=== PATIENT | male | born 1985 | race Caucasian/White ===

== ENCOUNTER 2019-04-04 14:37 | Day surgery (SDC) | payer OTHER ==
--- NOTE | 2019-04-03 18:04 | HP ---
HISTORY AND PHYSICAL REASON FOR ADMISSION: Surgery scheduled for 04/04/2019. Antoine Alvarado is a 33-year-old patient seen with progressive right knee pain. We discussed treatment options. He elected to proceed with right knee arthroscopy. Consent regarding procedure was obtained. PAST MEDICAL HISTORY: Hypertension, depression. PAST SURGICAL HISTORY: Right knee arthroscopy, left shoulder arthroscopy. MEDICATIONS: [place], Prilosec, Propranolol. ALLERGIES: VANCOMYCIN. SOCIAL HISTORY: Denies current tobacco use. PHYSICAL EXAMINATION: Evaluation of the right knee range of motion 0-130. Tenderness along the medial joint line. Tenderness along lateral joint line. Positive medial True's. Ligaments stable. Hip rotation without pain. Distal neurovascular exam intact. RADIOGRAPHS: Radiographs of the right knee revealed mild osteoarthritic changes. Right knee MRI revealed a medial meniscal tear. IMPRESSION: 1. Internal derangement right knee with medial meniscal tear. 2. Right knee osteoarthritis. 3. Hypertension. 4. Chronic opioid use. PLAN: Right knee arthroscopy with partial meniscectomy and debridement. Surgery scheduled for 04/04/2019. MMODL / IJN: [id number] /
[~2019-04-04 14:37] MED LIST: LACTATED RINGERS 1,000 ML IV SCH; ceFAZolin 3 GM in SODIUM CHLORIDE 0.9% 100 ML IVPB ONE
[2019-04-04] MEDS ORDERED: LIDOCAINE 1% 20 ML VIAL (10MG/ML) FOR IV START INTRADERMA ONE (15:12)
[2019-04-04] MEDS: ONDANSETRON 4 MG/2 ML VIAL IVP ONE ×2 (15:13→18:17)
[2019-04-04] MEDS ORDERED: DEXAMETHASONE SOD PHOSPHATE 10 MG/ML 1 ML VIAL IV ONE (15:13)
[2019-04-04] MEDS ORDERED: fentaNYL (PF) 50 MCG/ML 2 ML AMP ONE (17:21)
[2019-04-04] MEDS ORDERED: LIDOCAINE 1% INJ 10MG/ML (20 ML MDV) ONE (17:21)
[2019-04-04] MEDS ORDERED: SUCCINYLCHOLINE CHLORIDE 100 MG/5 ML SYR IV ONE (17:21)
[2019-04-04] MEDS ORDERED: MIDAZOLAM 2 MG/2 ML VIAL ONE (17:21)
[2019-04-04] MEDS ORDERED: KETOROLAC 30 MG/ML 1 ML VIAL ONE (17:21)
[2019-04-04] MEDS ORDERED: PROPOFOL 10 MG/ML 20 ML VIAL IV ONE (17:21)
[2019-04-04] MEDS ORDERED: BUPIVACAINE (PF) 0.5% 30 ML VIAL SQ ONE ×2 (17:41→17:47)
[2019-04-04] MEDS ORDERED: LACTATED RINGERS 1,000 ML IV ONE (17:48)
[2019-04-04 18:03] VITALS: TEMP 97
--- NOTE | 2019-04-04 18:04 | P.OP ---
Date of Procedure: 04/04/19 Preoperative Diagnosis: Internal derangement right knee Postoperative Diagnosis: 1. Tear medial meniscus right knee 2. Grade 2 chondromalacia medial femoral condyle right knee 3. Reactive synovitis medial and suprapatellar compartments right knee Procedure(s) Performed: 1. Arthroscopic partial medial meniscectomy right knee 2. Arthroscopic chondroplasty medial femoral condyle right knee 3. Arthroscopic partial synovectomy medial and suprapatellar compartments right knee Anesthesia: JAYA, local Surgeon: Vance Martin Estimated Blood Loss (ml): 5 Pathology: none sent Condition: stable Disposition: PACU Indications for Procedure: 33-year-old patient seen with progressive right knee pain. After having treatment options discussed, he elected to proceed with arthroscopy. Operative Findings: See description of procedure Description of Procedure: Patient was taken to the operative suite. Patient underwent a general anesthetic by the department of anesthesia. Patient was given preoperative antibiotics. The right lower extremity was placed in a well-padded arthroscopic leg lowery. The right leg was prepped and draped in the normal sterile orthopedic fashion. A lateral parapatellar and suprapatellar incision was made. Trochars were inserted. Arthroscopy was initiated. Suprapatellar pouch revealed diffuse thick reactive synovitis as well as multiple small loose bodies consistent with osteochondral fragments. The patellofemoral joint appeared to articulate congruently. There was grade 1 chondromalacia of the patella. The scope was guided into the medial gutter. No loose bodies or plica were identified. The scope was then guided into the medial compartment. A medial parapatellar incision was made. Trocar inserted followed by probe. There was a radial tear posterior horn medial meniscus. There were grade 2 chondromalacia changes the medial femoral condyle with some osteochondral flap tears present. There was thick reactive synovitis anteriorly. I performed a partial medial meniscectomy getting down to stable meniscal tissue. I performed a chondroplasty of the medial femoral condyle down to stable tissue. I performed a partial synovectomy decompressing the reactive synovitis anteriorly. The residual meniscus was probed and found to be stable. The residual osteochondral surface was stable. There was good decompression of the synovitis. Scope and probe were then guided into the intercondylar notch. Cruciates were identified, probed and found to be stable. The scope and probe were then guided into lateral compartment. Lateral meniscus was probed and found to be stable. There was no significant synovitis. There was no chondromalacia present. The scope was in guided back into the suprapatellar compartment. I introduced a motorized shaver into the suprapatellar compartment. I debrided some piecemeal fragments of meniscus I encountered. I debrided out those small loose bodies. I performed a partial synovectomy decompressing the reactive synovitis. The shaver was removed. I took one more look on the entire knee, no residual debris. Instruments were now removed from the joint. The joint was infiltrated with .25% Marcaine. Steri-Strips were applied to the portal sites. Sterile dressings were applied. The patient was placed into a DORA hose. No tourniquet was utilized. The patient was awakened, transferred to a bed and taken to recovery stable satisfactory condition.
[2019-04-04] MEDS: HYDROmorphone 0.5 MG/0.5 ML SYRINGE IVP PRN ×2 (18:14→18:19)
[2019-04-04] MEDS ORDERED: HYDROcodone/APAP 10-325MG 1 EACH TAB PO ONE (18:49)
[2019-04-04 18:55] VITALS: RESP 18
[2019-04-04 19:16] VITALS: BP 140/70; PULSE 60
== END 2019-04-04 19:20 | disposition home or self-care (01) ==
LOC: OR 14:37
PROVIDERS: ATTEND Orthopaedic Surgery
DX: S83.241A Other tear of medial meniscus, current injury, right knee, initial encounter (principal); X58.XXXA Exposure to other specified factors, initial encounter; M22.41 Chondromalacia patellae, right knee; M65.861 Other synovitis and tenosynovitis, right lower leg; M17.11 Unilateral primary osteoarthritis, right knee; I10 Essential (primary) hypertension; F32.9 Major depressive disorder, single episode, unspecified; K21.9 Gastro-esophageal reflux disease without esophagitis; G47.33 Obstructive sleep apnea (adult) (pediatric); G43.909 Migraine, unspecified, not intractable, without status migrainosus; Z79.891 Long term (current) use of opiate analgesic; Z79.899 Other long term (current) drug therapy; Z88.1 Allergy status to other antibiotic agents; Z98.890 Other specified postprocedural states
CPT/HCPCS: 29881; 29876; J2250; J1100; J0690; J2405; J2001; J3010; J1885; J0330; J2704; J1170

== ENCOUNTER 2020-11-11 17:20 | Observation (INO) | payer OTHER ==
[2020-11-11] MEDS ORDERED: HYDROmorphone 0.5 MG/0.5 ML SYRINGE IVP STA (18:05)
[2020-11-11] MEDS ORDERED: SODIUM CHLORIDE 0.9% 1,000 ML IV STA (18:05)
[2020-11-11] MEDS ORDERED: ONDANSETRON 4 MG/2 ML VIAL IVP STA (18:05)
--- NOTE | 2020-11-11 18:10 | ED ---
General Adult HPI - General Chief complaint: Abdominal Pain Stated complaint: abn labs Time Seen by Provider: 11/11/20 17:25 Source: patient, RN notes reviewed, old records reviewed Mode of arrival: ambulatory Limitations: no limitations - History of Present Illness Initial comments: This is a 34-year-old male who states she's been having right upper quadrant abdominal pain for a month. Patient states the pain radiates to his back and up to his right shoulder. Patient states the pain is pretty constant and is almost always there. Patient denies any fever chills per patient denies any chest pain palpitations or difficulty breathing. Patient states his had COVID but he was checked for antibodies and they told him he was negative. Patient denies any diarrhea. Patient denies any vomiting. Patient states the pain is gotten progressively worse and he can no longer stand the pain. Patient denies any alcohol use. Patient states that he went to urgent care today and they told his lipase was elevated. - Related Data Home Medications Medication Instructions Recorded Confirmed HYDROcodone/APAP 10-325MG [[place] 1 tab PO Q6H PRN 04/01/19 04/04/19 10-325] Omeprazole Magnesium [PriLOSEC OTC] 1 tab PO HS PRN 04/01/19 04/04/19 Propranolol HCl [Inderal] 60 mg PO DAILY PRN 04/01/19 04/04/19 Triamcinolone 0.1% Cream [Kenalog 1 applic TOPICAL DAILY PRN 04/01/19 04/04/19 0.1% Cream] Allergies Allergy/AdvReac Type Severity Reaction Status Date / Time vancomycin Allergy Rash/Hives Verified 11/11/20 17:28 Review of Systems ROS Statement: Those systems with pertinent positive or pertinent negative responses have been documented in the HPI. ROS Other: All systems not noted in ROS Statement are negative. Past Medical History Past Medical History: GERD/Reflux, Sleep Apnea/CPAP/BIPAP Additional Past Medical History / Comment(s): CHRONIC PAIN RIGHT & LEFT KNEE, LUMBAR AND CERIVAL PAIN (FROM SERVICE INJURY). MIGRAINES. DOES NOT USE CPAP. PLANTAR FASCIATIS IN BOTH FEET. History of Any Multi-Drug Resistant Organisms: MRSA Date of last positivie culture/infection: 08/24/2010; 02/24/2010; 07/27/2008 (ESTIMATED DATES FROM PATIENT). MDRO Source:: LEGS BUTTOCKS; LEG BUTTOCKS; GROIN Past Surgical History: Orthopedic Surgery Additional Past Surgical History / Comment(s): RIGHT KNEE ARTHOSCOPY X 2, LEFT SHOULDER ARTHOSCOPY. Past Anesthesia/Blood Transfusion Reactions: No Reported Reaction Past Psychological History: No Psychological Hx Reported Smoking Status: Never smoker Past Alcohol Use History: None Reported Past Drug Use History: None Reported - Past Family History Mother Family Medical History: No Reported History General Exam - General Exam Comments Initial Comments: GENERAL: Patient is well-developed and well-nourished. Patient is nontoxic and well- hydrated and is in mild distress. ENT: Neck is soft and supple. No significant lymphadenopathy is noted. Oropharynx is clear. Moist mucous membranes. Neck has full range of motion without eliciting any pain. EYES: The sclera were anicteric and conjunctiva were pink and moist. Extraocular movements were intact and pupils were equal round and reactive to light. Eyelids were unremarkable. PULMONARY: Unlabored respirations. Good breath sounds bilaterally. No audible rales rhonchi or wheezing was noted. CARDIOVASCULAR: There is a regular rate and rhythm without any murmurs gallops or rubs. ABDOMEN: Patient has right upper quadrant abdominal pain. SKIN: Skin is clear with no lesions or rashes and otherwise unremarkable. NEUROLOGIC: Patient is alert and oriented x3. Cranial nerves II through XII are grossly intact. Motor and sensory are also intact. Normal speech, volume and content. Symmetrical smile. MUSCULOSKELETAL: Normal extremities with adequate strength and full range of motion. No lower extremity swelling or edema. No calf tenderness. LYMPHATICS: No significant lymphadenopathy is noted PSYCHIATRIC: Normal psychiatric evaluation. Limitations: no limitations Course Vital Signs 11/11/20 17:25 Temperature 97.9 F Pulse Rate 100 Respiratory 18 Rate Blood Pressure 134/83 O2 Sat by Pulse 98 Oximetry Medical Decision Making - Medical Decision Making Ultrasound gallbladder shows no acute abnormality. Patient was offered discharge but he stated that he was in too much pain to go home. I spoke with Dr. Chavez she agreed to admit the patient admitted the patient wrote admitting orders. - Lab Data Result diagrams: 11/11/20 18:17 11/11/20 18:17 Lab Results 11/11/20 11/11/20 11/11/20 Range/Units 18:17 18:17 18:17 WBC 7.2 (3.8-10.6) k/uL RBC 4.76 (4.30-5.90) m/uL Hgb 15.0 (13.0-17.5) gm/dL Hct 41.9 (39.0-53.0) % MCV 88.0 (80.0-100.0) fL MCH 31.4 (25.0-35.0) pg MCHC 35.7 (31.0-37.0) g/dL RDW 12.2 (11.5-15.5) % Plt Count 223 (150-450) k/uL MPV 7.1 Neutrophils % 62 % Lymphocytes % 28 % Monocytes % 6 % Eosinophils % 2 % Basophils % 1 % Neutrophils # 4.5 (1.3-7.7) k/uL Lymphocytes # 2.0 (1.0-4.8) k/uL Monocytes # 0.4 (0-1.0) k/uL Eosinophils # 0.1 (0-0.7) k/uL Basophils # 0.0 (0-0.2) k/uL Sodium 140 (137-145) mmol/L Potassium 4.1 (3.5-5.1) mmol/L Chloride 105 (98-107) mmol/L Carbon Dioxide 25 (22-30) mmol/L Anion Gap 10 mmol/L BUN 13 (9-20) mg/dL Creatinine 0.82 (0.66-1.25) mg/dL Est GFR (CKD-EPI)AfAm >90 (>60 ml/min/1.73 sqM) Est GFR (CKD-EPI)NonAf >90 (>60 ml/min/1.73 sqM) Glucose 102 H (74-99) mg/dL Calcium 9.9 (8.4-10.2) mg/dL Total Bilirubin 0.7 (0.2-1.3) mg/dL AST 26 (17-59) U/L ALT 17 (4-49) U/L Alkaline Phosphatase 67 (38-126) U/L Total Protein 7.5 (6.3-8.2) g/dL Albumin 4.8 (3.5-5.0) g/dL Amylase 51 (30-110) U/L Lipase 53 (23-300) U/L Urine Color Light Yellow Urine Appearance Clear (Clear) Urine pH 6.5 (5.0-8.0) Ur Specific [place] 1.004 (1.001-1.035) Urine Protein Negative (Negative) Urine Glucose (UA) Negative (Negative) Urine Ketones Negative (Negative) Urine Blood Negative (Negative) Urine Nitrite Negative (Negative) Urine Bilirubin Negative (Negative) Urine Urobilinogen <2.0 (<2.0) mg/dL Ur Leukocyte Esterase Negative (Negative) Disposition Clinical Impression: Right upper quadrant abdominal pain Disposition: ADMITTED IP TO THIS HOSP Referrals: [facility]inic [Primary Care Provider] - 1-2 days Time of Disposition: 20:48
[2020-11-11 18:29] LABS: Basophils % (A) 1 %; Eosinophils # (A) 0.1 k/uL (0-0.7); Eosinophils % (A) 2 %; HCT 41.9 % (39.0-53.0); Lymphocytes % (A) 28 %; MCH 31.4 pg (25.0-35.0); MCHC 35.7 g/dL (31.0-37.0); Mean Platelet Volume 7.1; Monocytes # (A) 0.4 k/uL (0-1.0); Monocytes % (A) 6 %; Neutrophils # (A) 4.5 k/uL (1.3-7.7); Neutrophils % (A) 62 %; Platelet Count 223 k/uL (150-450); RBC 4.76 m/uL (4.30-5.90); RDW 12.2 % (11.5-15.5); WBC 7.2 k/uL (3.8-10.6)
[2020-11-11 18:36] LABS: ALT 17 U/L (4-49); AST 26 U/L (17-59); African American GFR (CKD) >90 (>60 ml/min/1.73 sqM); Albumin 4.8 g/dL (3.5-5.0); Alkaline Phosphatase 67 U/L (38-126); Amylase 51 U/L (30-110); Anion Gap 10 mmol/L; Blood Urea Nitrogen 13 mg/dL (9-20); Calcium 9.9 mg/dL (8.4-10.2); Carbon Dioxide 25 mmol/L (22-30); Chloride 105 mmol/L (98-107); Glucose 102 mg/dL (74-99); Lipase 53 U/L (23-300); Non-African American GFR(CKD) >90 (>60 ml/min/1.73 sqM); Potassium 4.1 mmol/L (3.5-5.1); Sodium 140 mmol/L (137-145); Total Bilirubin 0.7 mg/dL (0.2-1.3); Total Protein 7.5 g/dL (6.3-8.2)
[2020-11-11] MEDS ORDERED: HYDROmorphone 1 MG/ML 1 ML SYRINGE IVP STA (18:39)
[2020-11-11 20:01] LABS: Appearance,Urine Clear (Clear); Bilirubin,Urine Negative (Negative); Blood,Urine Negative (Negative); Color,Urine Light Yellow; Glucose,Urine (UA) Negative (Negative); Ketones,Urine Negative (Negative); Leukocyte Esterase,Urine Negative (Negative); Nitrite,Urine Negative (Negative); PH, Urine 6.5 (5.0-8.0); Protein,Urine Negative (Negative); Specific Gravity,Urine 1.004 (1.001-1.035); Urobilinogen,Urine <2.0 mg/dL (<2.0)
--- NOTE | 2020-11-11 20:06 | US ---
EXAMINATION TYPE: US gallbladder DATE OF EXAM: 11/11/2020 COMPARISON: NONE CLINICAL HISTORY: Right upper quadrant abdominal pain. Pain. EXAM MEASUREMENTS: Liver Length: 18.5 cm Gallbladder Wall: 0.26 cm CBD: Not visualized at this time. Right Kidney: 12.2 x 5.8 x 5.3 cm Limited due to gas and patient body habitus. Pancreas: Limited visibility. Liver: Appears enlarged. Appears to have an increased echogenicity. Gallbladder: Possible minimal amount of internal echoes, suggestive of possible biliary sludge. Evidence for sonographic Blackburn's sign: Yes CBD: Not visualized. Right Kidney: Hypoechoic-anechoic area seen upper pole: 1.7 x 1.4 x 1.1 cm., Probable benign cyst. IMPRESSION: Suggestion of biliary sludge with reported positive sonographic Blackburn's sign. However no sonographic evidence of inflammation. Findings are equivocal for acute cholecystitis. Probable right renal cyst.
--- NOTE | 2020-11-11 20:18 | XR ---
EXAMINATION TYPE: XR chest 2V DATE OF EXAM: 11/11/2020 COMPARISON: 05/29/2015. HISTORY: Pain TECHNIQUE: Frontal and lateral views of the chest are obtained. FINDINGS: There is no focal air space opacity, pleural effusion, or pneumothorax seen. The cardiac silhouette size is within normal limits. The osseous structures are intact. IMPRESSION: No acute cardiopulmonary process.
[2020-11-11] MEDS ORDERED: SODIUM CHLORIDE 0.9% 1,000 ML IV ONE (20:48)
[2020-11-11] MEDS: KETOROLAC 15 MG/ML 1 ML VIAL IVP SCH (23:25)
[2020-11-12] MEDS: KETOROLAC 15 MG/ML 1 ML VIAL IVP SCH ×3 (05:34→18:07)
[2020-11-12 07:38] LABS: HCT 39.1 % (39.0-53.0); HGB 13.4 gm/dL (13.0-17.5); MCH 30.7 pg (25.0-35.0); MCHC 34.3 g/dL (31.0-37.0); MCV 89.6 fL (80.0-100.0); Mean Platelet Volume 7.2; Platelet Count 212 k/uL (150-450); RBC 4.37 m/uL (4.30-5.90); RDW 12.4 % (11.5-15.5)
[2020-11-12 07:48] LABS: ALT 13 U/L (4-49); AST 22 U/L (17-59); African American GFR (CKD) >90 (>60 ml/min/1.73 sqM); Albumin 3.9 g/dL (3.5-5.0); Albumin/Globulin Ratio 1.7; Alkaline Phosphatase 49 U/L (38-126); Anion Gap 4 mmol/L; Blood Urea Nitrogen 16 mg/dL (9-20); Calcium 8.9 mg/dL (8.4-10.2); Carbon Dioxide 27 mmol/L (22-30); Chloride 108 mmol/L (98-107); Globulin 2.3 g/dL; Glucose 95 mg/dL (74-99); Non-African American GFR(CKD) >90 (>60 ml/min/1.73 sqM); Potassium 3.9 mmol/L (3.5-5.1); Sodium 139 mmol/L (137-145); Total Bilirubin 0.8 mg/dL (0.2-1.3); Total Protein 6.2 g/dL (6.3-8.2)
--- NOTE | 2020-11-12 11:41 | NM ---
EXAMINATION TYPE: NM hepatobiliary w CCK DATE OF EXAM: 11/12/2020 COMPARISON: Ultrasound gallbladder 11/11/2020 HISTORY: Abdominal pain TECHNIQUE: After the intravenous administration of 5.1 mCi Tc 99m Mebrofenin hepatobiliary scintigrap hy is performed. Immediate images post injection. FINDINGS: There is satisfactory initial accumulation of tracer by the liver. The gallbladder is visualized wit hin 15 minutes. The small bowel activity is noted within 15 minutes. At one hour CCK was administer ed, patient was injected with 2.2 mcg of Kinevac, and gallbladder ejection fraction is calculated at 79 %, in the normal range. Therefore there is no scintigraphic evidence of cystic or common bile sho t obstruction to suggest acute cholecystitis or gallbladder dyskinesia. IMPRESSION: Exam is within normal limits.
[2020-11-12] MEDS: IOPAMIDOL CONTRAST (ORAL USE) VIAL PO PRN ×2 (11:54→12:52)
[2020-11-12] MEDS: SODIUM CHLORIDE 0.9% 1,000 ML IV SCH ×2 (12:52→22:20)
--- NOTE | 2020-11-12 13:13 | P.GSHP ---
History of Present Illness H&P Date: 11/12/20 Patient presents with severe 10 on a 10 pain. Since admission pain is still severe. Ultrasound negative for gallstones. HIDA scan reviewed. We'll proceed with CT of the abdomen and pelvis. Additionally, recommend upper endoscopy for duodenal ulcer. Tentatively cholecystectomy described Past Medical History Past Medical History: GERD/Reflux, Sleep Apnea/CPAP/BIPAP Additional Past Medical History / Comment(s): CHRONIC PAIN RIGHT & LEFT KNEE, LUMBAR AND CERIVAL PAIN (FROM SERVICE INJURY). MIGRAINES. DOES NOT USE CPAP. PLANTAR FASCIATIS IN BOTH FEET. History of Any Multi-Drug Resistant Organisms: MRSA Date of last positivie culture/infection: 08/24/2010; 02/24/2010; 07/27/2008 (ESTIMATED DATES FROM PATIENT). MDRO Source:: LEGS BUTTOCKS; LEG BUTTOCKS; GROIN Past Surgical History: Orthopedic Surgery Additional Past Surgical History / Comment(s): RIGHT KNEE ARTHOSCOPY X 2, LEFT SHOULDER ARTHOSCOPY. Past Anesthesia/Blood Transfusion Reactions: No Reported Reaction Past Psychological History: No Psychological Hx Reported Smoking Status: Never smoker Past Alcohol Use History: None Reported Past Drug Use History: None Reported - Past Family History Mother Family Medical History: No Reported History Medications and Allergies Home Medications Medication Instructions Recorded Confirmed Type HYDROcodone/APAP 10-325MG [[place] 1 tab PO QID PRN 04/01/19 11/11/20 History 10-325] Propranolol HCl [Inderal] 60 mg PO DAILY PRN 04/01/19 11/11/20 History Ibuprofen [Motrin] 800 mg PO Q8H PRN 11/11/20 11/11/20 History Omeprazole [PriLOSEC] 40 mg PO DAILY 11/11/20 11/11/20 History Allergies Allergy/AdvReac Type Severity Reaction Status Date / Time vancomycin Allergy Rash/Hives Verified 11/11/20 22:06 Surgical - Exam Vital Signs Temp Pulse Resp BP Pulse Ox 97.9 F 100 18 134/83 98 11/11/20 17:25 11/11/20 17:25 11/11/20 17:25 11/11/20 17:25 11/11/20 17:25 Results - Labs 11/12/20 05:51 11/12/20 05:51 Abnormal Lab Results - Last 24 Hours (Table) 11/11/20 11/12/20 Range/Units 18:17 05:51 Chloride 108 H (98-107) mmol/L Glucose 102 H (74-99) mg/dL Total Protein 6.2 L (6.3-8.2) g/dL Diabetes panel 11/11/20 11/12/20 Range/Units 18:17 05:51 Sodium 140 139 (137-145) mmol/L Potassium 4.1 3.9 (3.5-5.1) mmol/L Chloride 105 108 H (98-107) mmol/L Carbon Dioxide 25 27 (22-30) mmol/L BUN 13 16 (9-20) mg/dL Creatinine 0.82 0.91 (0.66-1.25) mg/dL Glucose 102 H 95 (74-99) mg/dL Calcium 9.9 8.9 (8.4-10.2) mg/dL AST 26 22 (17-59) U/L ALT 17 13 (4-49) U/L Alkaline Phosphatase 67 49 (38-126) U/L Total Protein 7.5 6.2 L (6.3-8.2) g/dL Albumin 4.8 3.9 (3.5-5.0) g/dL Calcium panel 11/11/20 11/12/20 Range/Units 18:17 05:51 Calcium 9.9 8.9 (8.4-10.2) mg/dL Albumin 4.8 3.9 (3.5-5.0) g/dL Pituitary panel 11/11/20 11/12/20 Range/Units 18:17 05:51 Sodium 140 139 (137-145) mmol/L Potassium 4.1 3.9 (3.5-5.1) mmol/L Chloride 105 108 H (98-107) mmol/L Carbon Dioxide 25 27 (22-30) mmol/L BUN 13 16 (9-20) mg/dL Creatinine 0.82 0.91 (0.66-1.25) mg/dL Glucose 102 H 95 (74-99) mg/dL Calcium 9.9 8.9 (8.4-10.2) mg/dL Adrenal panel 11/11/20 11/12/20 Range/Units 18:17 05:51 Sodium 140 139 (137-145) mmol/L Potassium 4.1 3.9 (3.5-5.1) mmol/L Chloride 105 108 H (98-107) mmol/L Carbon Dioxide 25 27 (22-30) mmol/L BUN 13 16 (9-20) mg/dL Creatinine 0.82 0.91 (0.66-1.25) mg/dL Glucose 102 H 95 (74-99) mg/dL Calcium 9.9 8.9 (8.4-10.2) mg/dL Total Bilirubin 0.7 0.8 (0.2-1.3) mg/dL AST 26 22 (17-59) U/L ALT 17 13 (4-49) U/L Alkaline Phosphatase 67 49 (38-126) U/L Total Protein 7.5 6.2 L (6.3-8.2) g/dL Albumin 4.8 3.9 (3.5-5.0) g/dL
[2020-11-12 14:01] LABS: Chol/HDL Ratio 6.78; Cholesterol 217 mg/dL (0-200); LDL Cholesterol,Calculated 146.6 mg/dL (0.0-131.0)
--- NOTE | 2020-11-12 14:03 | CT ---
EXAMINATION TYPE: CT abdomen pelvis w con DATE OF EXAM: 11/12/2020 COMPARISON: None HISTORY: bilateral flank pain CT DLP: 1506 mGycm CONTRAST: CT scan of the abdomen and pelvis is performed with Oral Contrast and with IV Contrast, patient injec patricia with 100ml mL of Isovue 300. FINDINGS: LUNG BASES-: No visible nodule. No infiltrate. LIVER/GB: No calcified gallstones. No space occupying hepatic lesion. Biliary tree is of normal ca liber. PANCREAS: No inflammation. No distinct mass. SPLEEN: No splenic enlargement. No lesion seen. ADRENALS: No nodule. No thickening. KIDNEYS/BLADDER: No hydronephrosis. No nephrolithiasis. No distinct renal mass. Urinary bladder g rossly unremarkable. BOWEL: Normal appendix. Normal bowel caliber. No inflammation. GENITAL ORGANS: No gross abnormality. LYMPH NODES: No greater than 1cm abdominal or pelvic lymph nodes are appreciated. AORTA: No significant abnormality. OSSEOUS STRUCTURES: No significant abnormality is seen. OTHER: No significant additional abnormality is seen. IMPRESSION: 1. No acute process to account for the patient's symptoms.
[2020-11-12] MEDS: ACETAMINOPHEN TAB 325 MG TAB PO PRN ×2 (14:13→20:30)
--- NOTE | 2020-11-12 18:10 | P.PN ---
Progress Note - Text Progress Note Date: 11/12/20 CT reviewed. Patient still complains of 10 out of 10 pain. We'll proceed with upper endoscopy for evaluation of duodenal ulcers. Otherwise cholecystectomy described.
[2020-11-12] MEDS: ONDANSETRON 4 MG/2 ML VIAL IVP PRN (22:08)
[2020-11-12] MEDS: HYDROmorphone 1 MG/ML 1 ML SYRINGE IVP PRN (22:08)
[2020-11-13] MEDS: KETOROLAC 15 MG/ML 1 ML VIAL IVP SCH ×4 (00:08→18:12)
[2020-11-13] MEDS: HYDROmorphone 1 MG/ML 1 ML SYRINGE IVP PRN ×4 (03:13→21:01)
[2020-11-13] MEDS: LACTATED RINGERS 1,000 ML IV SCH (05:14)
[2020-11-13] MEDS: SODIUM CHLORIDE 0.9% 1,000 ML IV SCH ×2 (05:57→12:30)
[2020-11-13] MEDS ORDERED: IV FLUID CONTINUATION 900 ML IV ONE (06:56)
[2020-11-13] MEDS ORDERED: MIDAZOLAM 2 MG/2 ML VIAL ONE ×2 (06:57→18:53)
[2020-11-13] MEDS ORDERED: fentaNYL (PF) 50 MCG/ML 2 ML AMP ONE ×2 (06:57→18:53)
[2020-11-13] MEDS ORDERED: LIDOCAINE 1% INJ 10MG/ML (20 ML MDV) ONE (06:57)
[2020-11-13] MEDS ORDERED: KETAMINE 10 MG/ML 20 ML VIAL ONE (06:57)
[2020-11-13] MEDS ORDERED: PROPOFOL 10 MG/ML 20 ML VIAL IV ONE ×2 (06:57→18:53)
--- NOTE | 2020-11-13 07:21 | P.PCN ---
Date of Procedure: 11/13/20 Description of Procedure: PREOPERATIVE DIAGNOSIS: Chronic NSAID use Severe epigastric pain, right upper quadrant pain Duodenal ulcer POSTOPERATIVE DIAGNOSIS: Severe gastritis with bleeding Duodenitis with moderate inflammation OPERATION: Esophagogastroduodenoscopy with biopsies along antrum. SURGEON: Janice Best MD ANESTHESIA: MAC. INDICATIONS: The patient is a 34-year-old male who presents with severe epigastric and right upper quadrant abdominal pain with chronic NSAID use. Benefits and risks of the procedure were described. Informed consent was obtained. DESCRIPTION: The patient was brought into the endoscopy suite and laid in the left lateral decubitus position. An Olympus gastroscope was passed along the posterior oropharynx down to the distal esophagus where the squamocolumnar junction was encountered at 45 cm from the incisors. The stomach was entered and no bile reflux was found. Additional findings are listed below. Biopsies with cold forceps were obtained of the antrum. The first through third portion of the duodenum was examined and remarkable for moderate duodenitis. Retroflexion of the scope confirmed Hill grade 1 lower esophageal valve. The squamocolumnar junction demonstrated no LA grade A erosive esophagitis. The stomach was desufflated. The patient tolerated the procedure well. FINDINGS: Squamocolumnar junction 45 cm from the incisors. Diaphragmatic hiatus at 45 cm. Hill grade 1 lower esophageal valve. No LA grade A erosive esophagitis. Severe gastritis with recent bleeding Duodenitis with moderate inflammation RECOMMENDATIONS: Carafate 1 g twice a day Protonix 40 mg twice a day
[2020-11-13] MEDS ORDERED: HEPARIN SODIUM,PORCINE/PF 5,000 UNIT/0.5 ML SYRINGE SQ PRN (07:48)
[2020-11-13] MEDS: ONDANSETRON 4 MG/2 ML VIAL IVP PRN ×2 (10:06→20:42)
[2020-11-13] MEDS: PANTOPRAZOLE 40 MG/10 ML VIAL IVP SCH ×2 (10:07→20:43)
[2020-11-13] MEDS: SUCRALFATE 1 GM TAB PO SCH ×2 (10:07→18:12)
--- NOTE | 2020-11-13 17:03 | P.PN ---
Subjective Progress Note Date: 11/13/20 Patient seen and evaluated. Endoscopy findings reviewed. Patient has severe 10 out of 10 pain right upper quadrant abdominal pain. Patient presents with clinical acute cholecystitis. We'll proceed with robotic cholecystectomy. Benefits and risks described. Patient was to proceed with robotic cholecy stectomy. Objective - Vital Signs Vital signs: Vital Signs Temp 98.4 F 11/13/20 11:45 Pulse 62 11/13/20 11:45 Resp 16 11/13/20 11:45 BP 122/73 11/13/20 11:45 Pulse Ox 97 11/13/20 11:45 Intake & Output 11/12/20 11/13/20 11/13/20 18:59 06:59 18:59 Intake Total 1680 1490 400 Balance 1680 1490 400 Intake: IV 400 Intake, IV Titration 1100 900 Amount Sodium Chloride 0.9% 1, 1100 900 000 ml @ 100 mls/hr IV . Q10H [id number] Rx#:[id number] Oral 580 590 Other: Voiding Method Toilet # Voids 4 2 - Labs CBC & Chem 7: 11/12/20 05:51 11/12/20 05:51
[2020-11-13] MEDS ORDERED: SODIUM CHLORIDE 0.9% 1,000 ML IV ONE (18:52)
[2020-11-13] MEDS ORDERED: KETOROLAC 15 MG/ML 1 ML VIAL ONE (18:53)
[2020-11-13] MEDS ORDERED: DEXAMETHASONE SOD PHOSPHATE 10 MG/ML 1 ML VIAL ONE (18:53)
[2020-11-13] MEDS ORDERED: ROCURONIUM 10 MG/ML (5 ML VIAL) IV ONE (18:53)
[2020-11-13] MEDS ORDERED: ONDANSETRON 4 MG/2 ML VIAL ONE (18:53)
[2020-11-13] MEDS ORDERED: GLYCOPYRROLATE 0.2 MG/ML 2 ML VIAL ONE (18:53)
[2020-11-13] MEDS ORDERED: NEOSTIGMINE 1 MG/ML 10 ML VIAL ONE (18:53)
[2020-11-13] MEDS ORDERED: INDOCYANINE GREEN 25 MG VIAL IV ONE (18:53)
[2020-11-13] MEDS ORDERED: BUPIVACAIN-EPI 0.5%-1:200,000 30 ML VIAL SQ ONE (19:11)
--- NOTE | 2020-11-13 19:49 | P.OP ---
Date of Procedure: 11/13/20 Description of Procedure: SURGEON: BINA KIM MD PREOPERATIVE DIAGNOSES: 1. Cholecystitis with intractable right upper quadrant abdominal pain 2. Acute gastritis with bleeding 3. Duodenitis 4. Obstructive sleep apnea 5. Chronic pain syndrome 6. Obesity due to excess calories, BMI 30.2 POSTOPERATIVE DIAGNOSES: 1. Cholecystitis with intractable right upper quadrant abdominal pain 2. Acute gastritis with bleeding 3. Duodenitis 4. Obstructive sleep apnea 5. Chronic pain syndrome 6. Obesity due to excess calories, BMI 30.2 7. Hepatomegaly OPERATION: 1. Robotic-assisted da Leela Xi laparoscopic cholecystectomy, multiport with FIREFLY 2. Robotic-assisted da Leela Xi laparoscopic lysis of adhesions ESTIMATED BLOOD LOSS: 5 mL. SPECIMENS REMOVED: Gallbladder. COMPLICATIONS: None. OPERATIVE FINDINGS: 1. Moderate scarring over entire gallbladder with peritoneal adhesions, pericholecystic with features of chronic cholecystitis 2. Hepatomegaly INDICATIONS: The patient is a 34-year-old male who presents with intractable right upper quadrant abdominal pain and cholecystitis. Robotic assisted laparoscopic approach was described. Benefits and risks of the procedure including but not limited to bleeding, infection, injury to the biliary tree was described. Informed consent was obtained. DESCRIPTION OF PROCEDURE: Patient was brought to the operating room, placed in supine position. After general induction, the abdomen had been prepped and draped in standard sterile fashion. The robotic da Leela XI system was primed. After a timeout protocol was performed, the patient had been prepped and draped in standard sterile fashion. The patient was injected with indocyanine green. A 5 mm 0 degrees laparoscopic trocar entry was performed along the left upper quadrant. The abdomen insufflated to 15 mmHg pressure which was tolerated well. Diagnostic laparoscopy demonstrated no injury to bowel viscera or mesentery. The liver surface was unremarkable. Next, two 8 mm robotic ports were placed along the right upper abdomen. The camera 8-mm port was maintained along the epigastrium. Another 8 mm port was placed along the left upper abdominal wall after exchanging the 5 mm port. Please note that the ports were placed at least 10 to 15 cm away from the target anatomy of the gallbladder. The robot was docked along the left lateral abdomen. The patient was repositioned in reverse Trendelenburg position. Using a grasper for arm 3, a grasper for arm 4, including hook cautery for arm 1, the robotic system was docked and primed as described. Instruments were interchanged by the assistant professor of biology including hook cautery, Bovie cautery and clip appliers. I had sat at the console. The gallbladder was scarred with peritoneal adhesions. Lysis of adhesions was performed to free the gallbladder from the surrounding tissues. Next attention was brought to the infundibulum and cystic structures. The infundibulum and cystic duct were dissected free from surrounding tissues. The cystic duct was isolated. FIREFLY was used to identify the cystic artery and cystic structures. A critical view of safety was obtained. Large PLASTIC clips were used throughout the entire case. Using a clip label tacker, 2 clips were placed at the junction of the infundibulum and cystic duct. The cystic duct was divided between clips. Next, the cystic artery was similarly clipped and cauterized. Electro-Bovie cautery was used to remove the gallbladder from the hepatic fossa. Hemostasis was checked and found to be adequate. The robot was undocked. I re-scrubbed into the case. Using a 10 mm Endo Catch bag via the left upper quadrant incision, the specimen was removed from the abdominal cavity. All pneumoperitoneum instruments were evacuated from the abdominal cavity. The incisions were reapproximated using 4-0 Monocryl in an interrupted subcuticular fashion. Fascial defects were less than 8 mm in size. Please note along the trocar sites, local anesthetic was placed as a field block prior to insertion of all instruments. Liquid glue was applied to the skin. At the end of the procedure needle, sponge, and instrument count had been verified correct by the surgical aide. The patient was transferred to postanesthesia care unit in stable condition. Intraoperative films were shared with the patient's family.
[2020-11-13] MEDS ORDERED: HYDROcodone/APAP 5-325MG 1 EACH TAB PO PRN (19:50)
[2020-11-13] MEDS ORDERED: NALOXONE 0.4 MG/ML 1 ML VIAL IV PRN (19:50)
[2020-11-13] MEDS ORDERED: PROPRANOLOL 20 MG TAB PO PRN (19:51)
[2020-11-14] MEDS: KETOROLAC 15 MG/ML 1 ML VIAL IVP SCH ×3 (01:08→12:16)
[2020-11-14] MEDS: LACTATED RINGERS 1,000 ML IV SCH (01:09)
[2020-11-14] MEDS: HYDROmorphone 1 MG/ML 1 ML SYRINGE IVP PRN ×4 (01:30→12:16)
[2020-11-14] MEDS: HYDROcodone/APAP 10-325MG 1 EACH TAB PO PRN ×2 (02:45→10:03)
[2020-11-14] MEDS: SODIUM CHLORIDE 0.9% 1,000 ML IV SCH ×2 (05:23→07:37)
[2020-11-14] MEDS: SUCRALFATE 1 GM TAB PO SCH (07:35)
[2020-11-14] MEDS: PANTOPRAZOLE 40 MG/10 ML VIAL IVP SCH (07:35)
[2020-11-14 07:49] LABS: Basophils % (A) 0 %; Eosinophils % (A) 0 %; HCT 41.2 % (39.0-53.0); HGB 14.5 gm/dL (13.0-17.5); Lymphocytes # (A) 1.6 k/uL (1.0-4.8); Lymphocytes % (A) 14 %; MCH 31.4 pg (25.0-35.0); MCHC 35.1 g/dL (31.0-37.0); MCV 89.5 fL (80.0-100.0); Monocytes # (A) 0.6 k/uL (0-1.0); Monocytes % (A) 5 %; Neutrophils % (A) 80 %; Platelet Count 240 k/uL (150-450); RBC 4.61 m/uL (4.30-5.90); RDW 12.2 % (11.5-15.5); WBC 11.3 k/uL (3.8-10.6)
--- NOTE | 2020-11-14 11:31 | P.PN ---
Subjective Progress Note Date: 11/14/20 CHIEF COMPLAINT: Cholecystitis HISTORY OF PRESENT ILLNESS: The patient is a 34-year-old male status post cholecystectomy. He has pre-existing chronic pain and on scheduled narcotics. He has right shoulder pain that was present prior to surgery. He reports left upper quadrant pain has improved and prior right upper quadrant pain improved. He has approporiate incisional pain. His main concern [facility] ROS: No reports of nausea and vomiting. No fevers or chills. No new chest pain. No productive sputum PHYSICAL EXAM: VITAL SIGNS: Reviewed CONSTITUTIONAL: Well developed and in no acute distress. EYES: Conjuctivae without sclera icterus. Extraocular movements grossly intact. HEAD, EARS, NOSE, THROAT: Moist buccal mucosa. Head is atraumatic, no rmocephalic. Hears conversational speech. No nasal drainage. NECK: Supple. No thyroidomegaly. RESPIRATORY: Non-labored respirations and equal bilateral excursions. CARDIOVASCULAR: Palpable 2+ radial pulses. ABDOMEN: Incisions intact. No peritonits. MUSCULOSKELETAL: No gross deformity of the lower extremities noted. No clubbing. No cyanosis. SKIN: Good skin turgor. Well perfused. NEUROLOGIC: Cranial nerves II through XII grossly intact. No focal or lateralizing signs. PSYCH: Appropriate affect. Alert and oriented to person, place and time. CLINICAL LABS: Reviewed. WBC elevated post stress response from surgery. ASSESSMENT: 1. Cholecysitits 2. Chronic pain syndrome. PLAN: 1. Limited narcotic were described. Must have his prescriptions filled with pain provider. 2. Discharge with follow up in 1 week Objective - Vital Signs Vital signs: Vital Signs Temp 97.9 F 11/14/20 05:00 Pulse 73 11/14/20 05:00 Resp 18 11/14/20 05:00 BP 117/71 11/14/20 05:00 Pulse Ox 95 11/14/20 05:00 Intake & Output 11/13/20 11/14/20 11/14/20 18:59 06:59 18:59 Intake Total 1900 2470 Output Total 5 Balance 1900 2465 Intake: IV 700 650 Intake, IV Titration 1200 1100 Amount Sodium Chloride 0.9% 1, 1200 1100 000 ml @ 100 mls/hr IV . Q10H WILFRIDO Rx#:[id number] Oral 720 Output: Estimated Blood Loss 5 Other: Voiding Method Toilet # Voids 1 - Labs CBC & Chem 7: 11/14/20 07:13 11/12/20 05:51 Labs: Abnormal Lab Results - Last 24 Hours (Table) 11/14/20 Range/Units 07:13 WBC 11.3 H (3.8-10.6) k/uL Neutrophils # 9.0 H (1.3-7.7) k/uL Assessment and Plan (1) Cholecystitis Current Visit: Yes Status: Acute Code(s): K81.9 - CHOLECYSTITIS, UNSPECIFIED SNOMED Code(s): 62280023 (2) Intractable epigastric abdominal pain Current Visit: Yes Status: Acute Code(s): R10.13 - EPIGASTRIC PAIN SNOMED Code(s): 51192707 (3) Intractable right lower quadrant abdominal pain Current Visit: Yes Status: Acute Code(s): R10.31 - RIGHT LOWER QUADRANT PAIN SNOMED Code(s): 994730462 (4) Gastritis with bleeding Current Visit: Yes Status: Acute Code(s): K29.71 - GASTRITIS, UNSPECIFIED, WITH BLEEDING SNOMED Code(s): 5621567 (5) Duodenitis Current Visit: Yes Status: Acute Code(s): K29.80 - DUODENITIS WITHOUT BLEEDING SNOMED Code(s): 25350619 (6) Chronic pain syndrome Current Visit: Yes Status: Acute Code(s): G89.4 - CHRONIC PAIN SYNDROME SNOMED Code(s): 383860105 (7) Obstructive sleep apnea Current Visit: Yes Status: Acute Code(s): G47.33 - OBSTRUCTIVE SLEEP APNEA (ADULT) (PEDIATRIC) SNOMED Code(s): 68230801 (8) Obesity due to excess calories Current Visit: Yes Status: Acute Code(s): E66.09 - OTHER OBESITY DUE TO EXCESS CALORIES SNOMED Code(s): 793716971 (9) BMI 30.0-30.9,adult Current Visit: Yes Status: Acute Code(s): Z68.30 - BODY MASS INDEX [BMI]30.0-30.9, ADULT SNOMED Code(s): 431476709
--- NOTE | 2020-11-14 11:32 | P.DS ---
Providers Date of admission: 11/11/20 20:48 Expected date of discharge: 11/14/20 Attending physician: Janice Best Consults: 11/13/20 07:48 Consult Physician Routine Consulting Provider: [facility] Consult Reason/Comments: [facility] Do you want consulting provider notified?: Yes Primary care physician: [facility] Clinic - Discharge Diagnosis(es) (1) Cholecystitis Current Visit: Yes Status: Acute (2) Intractable epigastric abdominal pain Current Visit: Yes Status: Acute (3) Intractable right lower quadrant abdominal pain Current Visit: Yes Status: Acute (4) Gastritis with bleeding Current Visit: Yes Status: Acute (5) Duodenitis Current Visit: Yes Status: Acute (6) Chronic pain syndrome Current Visit: Yes Status: Acute (7) Obstructive sleep apnea Current Visit: Yes Status: Acute (8) Obesity due to excess calories Current Visit: Yes Status: Acute (9) BMI 30.0-30.9,adult Current Visit: Yes Status: Acute (10) Hepatomegaly Current Visit: Yes Status: Acute (11) Hypertensive heart disease Current Visit: Yes Status: Acute (12) Other social stressor Current Visit: Yes Status: Acute Hospital Course: CHIEF COMPLAINT: Cholecystitis HISTORY OF PRESENT ILLNESS: The patient is a 34-year-old male status post cholecystectomy. He has pre-existing chronic pain and on scheduled narcotics. He has right shoulder pain that was present prior to surgery. He reports left upper quadrant pain has improved and prior right upper quadrant pain improved. He has approporiate incisional pain. His main concern includes [facility] ROS: No reports of nausea and vomiting. No fevers or chills. No new chest pain. No productive sputum PHYSICAL EXAM: VITAL SIGNS: Reviewed CONSTITUTIONAL: Well developed and in no acute distress. EYES: Conjuctivae without sclera icterus. Extraocular movements grossly intact. HEAD, EARS, NOSE, THROAT: Moist buccal mucosa. Head is atraumatic, normocephalic. Hears conversational speech. No nasal drainage. NECK: Supple. No thyroidomegaly. RESPIRATORY: Non-labored respirations and equal bilateral excursions. CARDIOVASCULAR: Palpable 2+ radial pulses. ABDOMEN: Incisions intact. No peritonits. MUSCULOSKELETAL: No gross deformity of the lower extremities noted. No clubbing. No cyanosis. SKIN: Good skin turgor. Well perfused. NEUROLOGIC: Cranial nerves II through XII grossly intact. No focal or lateralizing signs. PSYCH: Appropriate affect. Alert and oriented to person, place and time. CLINICAL LABS: Reviewed. WBC elevated post stress response from surgery. ASSESSMENT: 1. Cholecysitits 2. Chronic pain syndrome. PLAN: 1. Limited narcotic were described. Must have his prescriptions filled with pain provider. 2. Discharge with follow up in 1 week Procedures: OPERATION: 1. Robotic-assisted da Leela Xi laparoscopic cholecystectomy, multiport with FIREFLY 2. Robotic-assisted da Leela Xi laparoscopic lysis of adhesions ESTIMATED BLOOD LOSS: 5 mL. SPECIMENS REMOVED: Gallbladder. COMPLICATIONS: None. OPERATIVE FINDINGS: 1. Moderate scarring over entire gallbladder with peritoneal adhesions, pericholecystic with features of chronic cholecystitis 2. Hepatomegaly POSTOPERATIVE DIAGNOSIS: Severe gastritis with bleeding Duodenitis with moderate inflammation OPERATION: Esophagogastroduodenoscopy with biopsies along antrum. Patient Condition at Discharge: Stable Plan - Discharge Summary Discharge Rx Participant: No New Discharge Prescriptions: New HYDROcodone/APAP 10-325MG [Bow 10-325] 1 each PO Q6H PRN #12 tab PRN Reason: Pain Sucralfate [Carafate] 1 gm PO BID #30 tablet Omeprazole [PriLOSEC] 40 mg PO DAILY #14 cap Simethicone 40 mg/0.6 ml Drops [Mylicon Drops] 80 mg PO Q6HR PRN #30 ml PRN Reason: Abdominal Distention Continue Propranolol HCl [Inderal] 60 mg PO DAILY PRN PRN Reason: MIGRAINES HYDROcodone/APAP 10-325MG [Bow 10-325] 1 tab PO QID PRN PRN Reason: Pain Omeprazole [PriLOSEC] 40 mg PO DAILY Discontinued Ibuprofen [Motrin] 800 mg PO Q8H PRN PRN Reason: Pain Discharge Medication List HYDROcodone/APAP 10-325MG [[place] 10-325] 1 tab PO QID PRN 04/01/19 [History] Propranolol HCl [Inderal] 60 mg PO DAILY PRN 04/01/19 [History] Omeprazole [PriLOSEC] 40 mg PO DAILY 11/11/20 [History] HYDROcodone/APAP 10-325MG [[place] 10-325] 1 each PO Q6H PRN #12 tab 11/14/20 [Rx] Omeprazole [PriLOSEC] 40 mg PO DAILY #14 cap 11/14/20 [Rx] Simethicone 40 mg/0.6 ml Drops [Mylicon Drops] 80 mg PO Q6HR PRN #30 ml 11/14/20 [Rx] Sucralfate [Carafate] 1 gm PO BID #30 tablet 11/14/20 [Rx] Follow up Appointment(s)/Referral(s): Janice Best MD [STAFF PHYSICIAN] - 11/19/20 [facility],Clinic [Primary Care Provider] - 1-2 days Patient Instructions/Handouts: Laparoscopic Cholecystectomy (DC) Activity/Diet/Wound Care/Special Instructions: Low fat diet for 2 days. No lifting over 10 pounds in 2 weeks, November 27October shower No soaking in bath tubs for 2 weeks, November 27 Please notify your surgeon if you develop nausea and vomiting including new onset of abdominal pain. Please ambulate at all times. Use Simethicone, Gas-X Tylenol scheduled for the next 24-48 hours for best pain relief. Use ice along incisions for the today to prevent swelling. Discharge Disposition: HOME SELF-CARE
[2020-11-14 12:05] VITALS: BP 116/73; PULSE 70; RESP 16; TEMP 98.1
[2020-11-14 12:16] LABS: African American GFR (CKD) 126.9 (60.0-200.0); Albumin 4.1 g/dL (3.80-4.90); Albumin/Globulin Ratio 2.16 (1.60-3.17); Anion Gap 3.9 mmol/L (4.00-12.00); BUN/Creat Ratio 14.44 Ratio (12.00-20.00); Calcium 9.1 mg/dL (8.7-10.3); Carbon Dioxide 29.1 mmol/L (21.6-31.8); Globulin 1.9 g/dL (1.6-3.3); Non-African American GFR(CKD) 109.5 (60.0-200.0); Potassium 4.2 mmol/L (3.5-5.5); Total Bilirubin 0.7 mg/dL (0.3-1.2)
[2020-11-14] MEDS ORDERED: PANTOPRAZOLE 40 MG TABLET PO SCH (21:00)
== END 2020-11-14 13:50 | disposition home or self-care (01) ==
LOC: EC 17:20 → 5NMEDONC 20:48
PROVIDERS: ADMIT Surgery Plastic and Reconstructive Surgery; ATTEND Surgery Plastic and Reconstructive Surgery
DX: K81.2 Acute cholecystitis with chronic cholecystitis (principal); K29.01 Acute gastritis with bleeding; K29.80 Duodenitis without bleeding; K26.9 Duodenal ulcer, unspecified as acute or chronic, without hemorrhage or perforation; G47.33 Obstructive sleep apnea (adult) (pediatric); E66.09 Other obesity due to excess calories; K66.0 Peritoneal adhesions (postprocedural) (postinfection); K21.9 Gastro-esophageal reflux disease without esophagitis; Z20.822 Contact with and (suspected) exposure to COVID-19; R16.0 Hepatomegaly, not elsewhere classified; I11.9 Hypertensive heart disease without heart failure; G89.4 Chronic pain syndrome; M54.5 Low back pain; M54.2 Cervicalgia; M25.561 Pain in right knee; M25.562 Pain in left knee; Z68.30 Body mass index [BMI] 30.0-30.9, adult; Z79.899 Other long term (current) drug therapy; Z88.1 Allergy status to other antibiotic agents; Z60.9 Problem related to social environment, unspecified; Z16.24 Resistance to multiple antibiotics; Z79.1 Long term (current) use of non-steroidal anti-inflammatories (NSAID); Z86.69 Personal history of other diseases of the nervous system and sense organs
CPT/HCPCS: 47562; 49329; S2900; 36415; 43239; 71046; 74177; 76705; 78227; 80053; 80061; 81003; 82150; 83690; 85025; 85027; 87635; 88304; 88305; 96361; 96374; 96375; 96376; 99285

== ENCOUNTER → 2020-12-16 | Outpatient (CLI) | payer OTHER ==
[2020-12-16 14:37] LABS: Prothrombin Time 10.3 sec (9.0-12.0)
[2020-12-16 18:41] LABS: HCT 41.5 % (39.6-50.0); HGB 14.1 g/dL (13.0-17.0); MCH 30.6 pg (27.0-32.0); Mean Platelet Volume 10.7 fL (9.5-12.2); Platelet Count 238 X 10*3/uL (140-440); RBC 4.61 X 10*6/uL (4.40-5.60); RDW 12.6 % (11.5-14.5); WBC 3.88 X 10*3/uL (4.50-10.00)
[2020-12-16 20:58] LABS: Hemoglobin A1C 5.3 % (4.0-6.0)
[2020-12-16 23:52] LABS: % Iron Saturation 27.05 (15.00-50.00); African American GFR (CKD) 110.9 (60.0-200.0); Albumin 4.5 g/dL (3.80-4.90); Albumin/Globulin Ratio 2.05 (1.60-3.17); Anion Gap 8.4 mmol/L (4.00-12.00); Carbon Dioxide 29.6 mmol/L (21.6-31.8); Chol/HDL Ratio 4.8; Ferritin 324.4 ng/mL (22.0-322.0); Folate, Serum 17.2 ng/mL; Globulin 2.2 g/dL (1.6-3.3); Non-African American GFR(CKD) 95.7 (60.0-200.0); Phosphorus 4.2 mg/dL (2.4-5.1); Potassium 4.6 mmol/L (3.5-5.5); Total Bilirubin 0.6 mg/dL (0.3-1.2); Total Protein 6.7 g/dL (6.2-8.2)
[2020-12-17 13:52] LABS: Zinc, Serum 80 ug/dL (60-130)
[2020-12-18 06:05] LABS: Vitamin A 65 ug/dL (38-106)
[2020-12-18 06:42] LABS: Vit B1(Thiamine) 67 ug/L (38-122)
== END | disposition home or self-care (01) ==
LOC: LABWHC1 13:12
PROVIDERS: ATTEND Surgery Plastic and Reconstructive Surgery
DX: E21.1 Secondary hyperparathyroidism, not elsewhere classified (principal); E89.1 Postprocedural hypoinsulinemia; D50.8 Other iron deficiency anemias; K90.89 Other intestinal malabsorption; K74.1 Hepatic sclerosis; N19 Unspecified kidney failure; K50.90 Crohn's disease, unspecified, without complications; E66.01 Morbid (severe) obesity due to excess calories; E55.9 Vitamin D deficiency, unspecified
CPT/HCPCS: 36415; 80053; 80061; 82306; 82525; 82607; 82728; 82746; 83036; 83540; 83550; 83735; 83970; 84100; 84134; 84255; 84425; 84443; 84590; 84630; 85027; 85610; 85730

== ENCOUNTER 2020-12-30 17:51 | Emergency (ER) | payer OTHER ==
[2020-12-30 17:55] VITALS: BP 123/87; PULSE 84; RESP 18; TEMP 97.6
[2020-12-30] MEDS ORDERED: METOCLOPRAMIDE 5 MG/ML 2 ML VIAL IVP STA (18:31)
[2020-12-30] MEDS ORDERED: SODIUM CHLORIDE 0.9% 2,000 ML IV STA (18:31)
[2020-12-30 18:51] LABS: Appearance,Urine Clear (Clear); Bilirubin,Urine Negative (Negative); Blood,Urine Negative (Negative); Color,Urine Yellow; Glucose,Urine (UA) Negative (Negative); Ketones,Urine Negative (Negative); Leukocyte Esterase,Urine Negative (Negative); Nitrite,Urine Negative (Negative); Protein,Urine Negative (Negative); Specific Gravity,Urine 1.015 (1.001-1.035); Urobilinogen,Urine <2.0 mg/dL (<2.0)
[2020-12-30 18:57] LABS: Basophils % (A) 0 %; Eosinophils # (A) 0.1 k/uL (0-0.7); Eosinophils % (A) 2 %; HCT 41.5 % (39.0-53.0); HGB 14.7 gm/dL (13.0-17.5); Lymphocytes # (A) 1.3 k/uL (1.0-4.8); Lymphocytes % (A) 18 %; MCH 30.7 pg (25.0-35.0); MCHC 35.3 g/dL (31.0-37.0); MCV 87.1 fL (80.0-100.0); Mean Platelet Volume 7.2; Monocytes # (A) 0.3 k/uL (0-1.0); Monocytes % (A) 4 %; Neutrophils # (A) 5.6 k/uL (1.3-7.7); Neutrophils % (A) 75 %; Platelet Count 233 k/uL (150-450); RBC 4.77 m/uL (4.30-5.90); RDW 12.4 % (11.5-15.5); WBC 7.5 k/uL (3.8-10.6)
[2020-12-30 19:05] LABS: ALT 25 U/L (4-49); AST 32 U/L (17-59); African American GFR (CKD) >90 (>60 ml/min/1.73 sqM); Albumin 4.7 g/dL (3.5-5.0); Alkaline Phosphatase 60 U/L (38-126); Amylase 50 U/L (30-110); Anion Gap 10 mmol/L; Blood Urea Nitrogen 18 mg/dL (9-20); Calcium 9.6 mg/dL (8.4-10.2); Carbon Dioxide 27 mmol/L (22-30); Chloride 103 mmol/L (98-107); Glucose 106 mg/dL (74-99); Lipase 62 U/L (23-300); Non-African American GFR(CKD) >90 (>60 ml/min/1.73 sqM); Potassium 4.4 mmol/L (3.5-5.1); Sodium 140 mmol/L (137-145); Total Bilirubin 0.6 mg/dL (0.2-1.3); Total Protein 7.2 g/dL (6.3-8.2)
[2020-12-30] MEDS ORDERED: ONDANSETRON 4 MG/2 ML VIAL IVP STA (19:27)
--- NOTE | 2020-12-30 19:29 | ED ---
General Adult HPI - General Chief complaint: Nausea/Vomiting/Diarrhea Stated complaint: Post-op Nausea/Back Pain Time Seen by Provider: 12/30/20 18:16 Source: patient, RN notes reviewed Mode of arrival: ambulatory Limitations: no limitations - History of Present Illness Initial comments: 35-year-old male presents emergency Department chief complaint of nausea vomiting. Patient states that symptoms aren't going on for over a month. Patient states she is status post cholecystectomy. Patient states that initially after surgery he was on omeprazole and Carafate states that even when he was on his meds he states that symptoms. Patient reports right-sided abdominal discomfort, rates to his back and shoulder just like when he has gallbladder issues. Patient denies any dysuria hematuria no significant diarrhea constipation no fevers or chills no night sweats. - Related Data Home Medications Medication Instructions Recorded Confirmed HYDROcodone/APAP 10-325MG [[place] 1 tab PO QID PRN 04/01/19 11/11/20 10-325] Propranolol HCl [Inderal] 60 mg PO DAILY PRN 04/01/19 11/11/20 Omeprazole [PriLOSEC] 40 mg PO DAILY 11/11/20 11/11/20 Previous Rx's Medication Instructions Recorded HYDROcodone/APAP 10-325MG [[place] 1 each PO Q6H PRN #12 tab 11/14/20 10-325] Omeprazole [PriLOSEC] 40 mg PO DAILY #14 cap 11/14/20 Simethicone 40 mg/0.6 ml Drops 80 mg PO Q6HR PRN #30 ml 11/14/20 [Mylicon Drops] Sucralfate [Carafate] 1 gm PO BID #30 tablet 11/14/20 Ondansetron Odt [Zofran ODT] 4 mg PO Q8HR PRN #30 tab 12/15/20 Metoclopramide [Reglan] 10 mg PO TID PRN #15 tab 12/30/20 Pantoprazole [Protonix] 40 mg PO DAILY #30 tablet. 12/30/20 Allergies Allergy/AdvReac Type Severity Reaction Status Date / Time tramadol Allergy Unknown Verified 12/30/20 17:52 vancomycin Allergy Rash/Hives Verified 12/30/20 17:52 Review of Systems ROS Statement: Those systems with pertinent positive or pertinent negative responses have been documented in the HPI. ROS Other: All systems not noted in ROS Statement are negative. Past Medical History Past Medical History: GERD/Reflux, Sleep Apnea/CPAP/BIPAP Additional Past Medical History / Comment(s): CHRONIC PAIN RIGHT & LEFT KNEE, LUMBAR AND CERIVAL PAIN (FROM SERVICE INJURY). MIGRAINES. DOES NOT USE CPAP. PLANTAR FASCIATIS IN BOTH FEET. History of Any Multi-Drug Resistant Organisms: MRSA Date of last positivie culture/infection: 08/24/2010; 02/24/2010; 07/27/2008 (ESTIMATED DATES FROM PATIENT). MDRO Source:: LEGS BUTTOCKS; LEG BUTTOCKS; GROIN Past Surgical History: Cholecystectomy, Orthopedic Surgery Additional Past Surgical History / Comment(s): RIGHT KNEE ARTHOSCOPY X 2, LEFT SHOULDER ARTHOSCOPY. Past Anesthesia/Blood Transfusion Reactions: No Reported Reaction Past Psychological History: No Psychological Hx Reported Smoking Status: Never smoker Past Alcohol Use History: None Reported Past Drug Use History: None Reported - Past Family History Mother Family Medical History: No Reported History General Exam Limitations: no limitations General appearance: alert, in no apparent distress Head exam: Present: atraumatic, normocephalic, normal inspection Neck exam: Present: normal inspection. Absent: tenderness, meningismus, lymphadenopathy Respiratory exam: Present: normal lung sounds bilaterally. Absent: respiratory distress, wheezes, rales, rhonchi, stridor Cardiovascular Exam: Present: regular rate, normal rhythm, normal heart sounds. Absent: systolic murmur, diastolic murmur, rubs, gallop, clicks GI/Abdominal exam: Present: soft, tenderness ( Right-sided), normal bowel sounds. Absent: distended, guarding, rebound, rigid Back exam: Absent: CVA tenderness (R), CVA tenderness (L) Course Vital Signs 12/30/20 17:53 Temperature 97.6 F Pulse Rate 84 Respiratory 18 Rate Blood Pressure 123/87 O2 Sat by Pulse 99 Oximetry Medical Decision Making - Medical Decision Making Patient presented for nausea after. Cholecystomy. Patient was well hydrated, given antiemetics states it is improved. Patient's labs and CT unremarkable patient discharged with follow-up. - Lab Data Result diagrams: 12/30/20 18:37 12/30/20 18:37 Lab Results 12/30/20 12/30/20 12/30/20 Range/Units 18:37 18:37 18:37 WBC 7.5 (3.8-10.6) k/uL RBC 4.77 (4.30-5.90) m/uL Hgb 14.7 (13.0-17.5) gm/dL Hct 41.5 (39.0-53.0) % MCV 87.1 (80.0-100.0) fL MCH 30.7 (25.0-35.0) pg MCHC 35.3 (31.0-37.0) g/dL RDW 12.4 (11.5-15.5) % Plt Count 233 (150-450) k/uL MPV 7.2 Neutrophils % 75 % Lymphocytes % 18 % Monocytes % 4 % Eosinophils % 2 % Basophils % 0 % Neutrophils # 5.6 (1.3-7.7) k/uL Lymphocytes # 1.3 (1.0-4.8) k/uL Monocytes # 0.3 (0-1.0) k/uL Eosinophils # 0.1 (0-0.7) k/uL Basophils # 0.0 (0-0.2) k/uL Sodium 140 (137-145) mmol/L Potassium 4.4 (3.5-5.1) mmol/L Chloride 103 (98-107) mmol/L Carbon Dioxide 27 (22-30) mmol/L Anion Gap 10 mmol/L BUN 18 (9-20) mg/dL Creatinine 0.96 (0.66-1.25) mg/dL Est GFR (CKD-EPI)AfAm >90 (>60 ml/min/1.73 sqM) Est GFR (CKD-EPI)NonAf >90 (>60 ml/min/1.73 sqM) Glucose 106 H (74-99) mg/dL Plasma Lactic Acid Kavon (0.7-2.0) mmol/L Calcium 9.6 (8.4-10.2) mg/dL Total Bilirubin 0.6 (0.2-1.3) mg/dL AST 32 (17-59) U/L ALT 25 (4-49) U/L Alkaline Phosphatase 60 (38-126) U/L Total Protein 7.2 (6.3-8.2) g/dL Albumin 4.7 (3.5-5.0) g/dL Amylase 50 (30-110) U/L Lipase 62 (23-300) U/L Urine Color Yellow Urine Appearance Clear (Clear) Urine pH 6.0 (5.0-8.0) Ur Specific [place] 1.015 (1.001-1.035) Urine Protein Negative (Negative) Urine Glucose (UA) Negative (Negative) Urine Ketones Negative (Negative) Urine Blood Negative (Negative) Urine Nitrite Negative (Negative) Urine Bilirubin Negative (Negative) Urine Urobilinogen <2.0 (<2.0) mg/dL Ur Leukocyte Esterase Negative (Negative) 12/30/20 Range/Units 18:37 WBC (3.8-10.6) k/uL RBC (4.30-5.90) m/uL Hgb (13.0-17.5) gm/dL Hct (39.0-53.0) % MCV (80.0-100.0) fL MCH (25.0-35.0) pg MCHC (31.0-37.0) g/dL RDW (11.5-15.5) % Plt Count (150-450) k/uL MPV Neutrophils % % Lymphocytes % % Monocytes % % Eosinophils % % Basophils % % Neutrophils # (1.3-7.7) k/uL Lymphocytes # (1.0-4.8) k/uL Monocytes # (0-1.0) k/uL Eosinophils # (0-0.7) k/uL Basophils # (0-0.2) k/uL Sodium (137-145) mmol/L Potassium (3.5-5.1) mmol/L Chloride (98-107) mmol/L Carbon Dioxide (22-30) mmol/L Anion Gap mmol/L BUN (9-20) mg/dL Creatinine (0.66-1.25) mg/dL Est GFR (CKD-EPI)AfAm (>60 ml/min/1.73 sqM) Est GFR (CKD-EPI)NonAf (>60 ml/min/1.73 sqM) Glucose (74-99) mg/dL Plasma Lactic Acid K[place] 0.7 (0.7-2.0) mmol/L Calcium (8.4-10.2) mg/dL Total Bilirubin (0.2-1.3) mg/dL AST (17-59) U/L ALT (4-49) U/L Alkaline Phosphatase (38-126) U/L Total Protein (6.3-8.2) g/dL Albumin (3.5-5.0) g/dL Amylase (30-110) U/L Lipase (23-300) U/L Urine Color Urine Appearance (Clear) Urine pH (5.0-8.0) Ur Specific [place] (1.001-1.035) Urine Protein (Negative) Urine Glucose (UA) (Negative) Urine Ketones (Negative) Urine Blood (Negative) Urine Nitrite (Negative) Urine Bilirubin (Negative) Urine Urobilinogen (<2.0) mg/dL Ur Leukocyte Esterase (Negative) Disposition Clinical Impression: Nausea, Status post cholecystectomy Disposition: HOME SELF-CARE Condition: Stable Instructions (If sedation given, give patient instructions): Acute Nausea and Vomiting (ED) Additional Instructions: Please return to the Emergency Department if symptoms worsen or any other concerns. Prescriptions: Pantoprazole [Protonix] 40 mg PO DAILY #30 tablet. Metoclopramide [Reglan] 10 mg PO TID PRN #15 tab PRN Reason: Nausea Is patient prescribed a controlled substance at d/c from ED?: No Referrals: [facility],Clinic [Primary Care Provider] - 1-2 days Time of Disposition: 20:32
--- NOTE | 2020-12-30 20:03 | CT ---
EXAMINATION TYPE: CT abdomen pelvis w con DATE OF EXAM: 12/30/2020 COMPARISON: 11/12/2020 HISTORY: abdominal pain and nausea post elkin CT DLP: 1207.8 mGycm Automated exposure control for dose reduction was used. CONTRAST: Performed with IV Contrast, patient injected with 100 mL of Isovue 300. Images obtained from the diaphragm to the floor the pelvis with IV contrast Isovue 100 mL. The lung bases are clear. There is no pleural effusion. Heart size is normal. There is no pericardial effusion. Liver spleen stomach pancreas appear intact. The bile ducts are not dilated. Gallbladder appears abse nt. There is no adrenal mass. Kidneys show satisfactory contrast opacification. There is no hydronephrosi s. Ureters are not dilated. There is no retroperitoneal adenopathy. Bladder distends smoothly. There is no inguinal hernia. There is no free fluid in the pelvis. There is no mesenteric edema. There is no ascites or free air. There is no bowel obstruction. Appendi x appears normal. The lumbar vertebra have normal alignment. There is no compression fracture. The po sterior elements are intact. Bony pelvis is intact. The hip joints are intact. There is no hip dyspla ashish. IMPRESSION: Negative CT scan abdomen and pelvis. Normal appendix. No adverse change compared to old exam.
[2020-12-30] MEDS ORDERED: KETOROLAC 15 MG/ML 1 ML VIAL IVP STA (20:11)
== END 2020-12-30 20:52 | disposition home or self-care (01) ==
LOC: EC 17:51
DX: R11.2 Nausea with vomiting, unspecified (principal); R10.9 Unspecified abdominal pain; K21.9 Gastro-esophageal reflux disease without esophagitis; Z79.899 Other long term (current) drug therapy; Z79.891 Long term (current) use of opiate analgesic; Z90.49 Acquired absence of other specified parts of digestive tract
CPT/HCPCS: 36415; 80053; 82150; 83605; 83690; 85025; 81003; 74177; 96374; 96375 ×2; 96361 ×2; 99284; J2765; J2405; J1885; Q9967

== ENCOUNTER 2021-01-07 23:30 | Emergency (ER) | payer OTHER ==
[2021-01-07 23:37] VITALS: TEMP 97.8
[2021-01-08] MEDS ORDERED: KETOROLAC 15 MG/ML 1 ML VIAL IVP STA (00:15)
[2021-01-08] MEDS ORDERED: SODIUM CHLORIDE 0.9% 1,000 ML IV STA (00:15)
[2021-01-08 00:43] LABS: Basophils % (A) 0 %; Eosinophils # (A) 0.2 k/uL (0-0.7); Eosinophils % (A) 2 %; HCT 41.8 % (39.0-53.0); HGB 14.4 gm/dL (13.0-17.5); Lymphocytes # (A) 2.5 k/uL (1.0-4.8); Lymphocytes % (A) 33 %; MCH 30.2 pg (25.0-35.0); MCHC 34.4 g/dL (31.0-37.0); MCV 87.7 fL (80.0-100.0); Mean Platelet Volume 7.3; Monocytes # (A) 0.4 k/uL (0-1.0); Monocytes % (A) 5 %; Neutrophils # (A) 4.4 k/uL (1.3-7.7); Neutrophils % (A) 57 %; Platelet Count 274 k/uL (150-450); RBC 4.76 m/uL (4.30-5.90); RDW 13.6 % (11.5-15.5); WBC 7.6 k/uL (3.8-10.6)
--- NOTE | 2021-01-08 00:54 | XR ---
EXAMINATION TYPE: XR soft tissue neck DATE OF EXAM: 01/08/2021 COMPARISON: NONE HISTORY: Right sided neck pain TECHNIQUE: 2 views FINDINGS: Cervical vertebra have normal alignment. Posterior elements are intact. Disc spaces are nor mal. Prevertebral soft tissues appear normal. Skull base is intact. There are no cervical ribs. Epiglottis is normal. Tonsils and adenoids appear normal. Subglottic trachea appears normal. IMPRESSION: Negative cervical soft tissue exam.
[2021-01-08 01:08] LABS: ALT 23 U/L (4-49); AST 25 U/L (17-59); African American GFR (CKD) >90 (>60 ml/min/1.73 sqM); Albumin 4.7 g/dL (3.5-5.0); Alkaline Phosphatase 64 U/L (38-126); Anion Gap 10 mmol/L; Blood Urea Nitrogen 19 mg/dL (9-20); Calcium 9.5 mg/dL (8.4-10.2); Carbon Dioxide 27 mmol/L (22-30); Chloride 103 mmol/L (98-107); Glucose 104 mg/dL (74-99); Non-African American GFR(CKD) >90 (>60 ml/min/1.73 sqM); Potassium 4.2 mmol/L (3.5-5.1); Sodium 140 mmol/L (137-145); Total Bilirubin 0.4 mg/dL (0.2-1.3); Total Protein 7.2 g/dL (6.3-8.2)
[2021-01-08] MEDS ORDERED: ACET/COD 300 MG/30 MG STARTER PACK 6 TAB BTL PO STA (01:55)
--- NOTE | 2021-01-08 02:08 | ED ---
ENT HPI - General Chief complaint: ENT Stated complaint: ENT Time Seen by Provider: 01/08/21 00:08 Source: patient, RN notes reviewed Mode of arrival: ambulatory Limitations: no limitations - History of Present Illness Initial comments: Patient is a 35-year-old male that presents to emergency department complaining of right-sided neck pain. He notes that this started several days ago. He notes that if he pushes on or pulled rest of his neck he is able to swallow. He notes that other than that it is painful to swallow. He noted that he is tried taking Motrin or Tylenol with no relief. She denied any fever or other symptoms at this time. He was a well-appearing well-hydrated 5-year-old male in no apparent distress or pain. She denied any chest pain shortness breath headache nausea vomiting diarrhea constipation fever fatigue chills. - Related Data Home Medications Medication Instructions Recorded Confirmed HYDROcodone/APAP 10-325MG [[place] 1 tab PO QID PRN 04/01/19 11/11/20 10-325] Propranolol HCl [Inderal] 60 mg PO DAILY PRN 04/01/19 11/11/20 Omeprazole [PriLOSEC] 40 mg PO DAILY 11/11/20 11/11/20 Previous Rx's Medication Instructions Recorded HYDROcodone/APAP 10-325MG [[place] 1 each PO Q6H PRN #12 tab 11/14/20 10-325] Omeprazole [PriLOSEC] 40 mg PO DAILY #14 cap 11/14/20 Simethicone 40 mg/0.6 ml Drops 80 mg PO Q6HR PRN #30 ml 11/14/20 [Mylicon Drops] Sucralfate [Carafate] 1 gm PO BID #30 tablet 11/14/20 Ondansetron Odt [Zofran ODT] 4 mg PO Q8HR PRN #30 tab 12/15/20 Metoclopramide [Reglan] 10 mg PO TID PRN #15 tab 12/30/20 Pantoprazole [Protonix] 40 mg PO DAILY #30 tablet. 12/30/20 Allergies Allergy/AdvReac Type Severity Reaction Status Date / Time tramadol Allergy Unknown Verified 01/07/21 23:37 vancomycin Allergy Rash/Hives Verified 01/07/21 23:37 Review of Systems ROS Statement: Those systems with pertinent positive or pertinent negative responses have been documented in the HPI. ROS Other: All systems not noted in ROS Statement are negative. Past Medical History Past Medical History: GERD/Reflux, Sleep Apnea/CPAP/BIPAP Additional Past Medical History / Comment(s): CHRONIC PAIN RIGHT & LEFT KNEE, LUMBAR AND CERIVAL PAIN (FROM SERVICE INJURY). MIGRAINES. DOES NOT USE CPAP. PLANTAR FASCIATIS IN BOTH FEET. History of Any Multi-Drug Resistant Organisms: MRSA Date of last positivie culture/infection: 08/24/2010; 02/24/2010; 07/27/2008 (ESTIMATED DATES FROM PATIENT). MDRO Source:: LEGS BUTTOCKS; LEG BUTTOCKS; GROIN Past Surgical History: Cholecystectomy, Orthopedic Surgery Additional Past Surgical History / Comment(s): RIGHT KNEE ARTHOSCOPY X 3, LEFT SHOULDER ARTHOSCOPY. Past Anesthesia/Blood Transfusion Reactions: No Reported Reaction Past Psychological History: No Psychological Hx Reported Smoking Status: Never smoker Past Alcohol Use History: None Reported Past Drug Use History: None Reported - Past Family History Mother Family Medical History: No Reported History General Exam Limitations: no limitations General appearance: alert, in no apparent distress Head exam: Present: atraumatic, normocephalic, normal inspection Eye exam: Present: normal appearance, PERRL, EOMI. Absent: scleral icterus, conjunctival injection, periorbital swelling Neck exam: Present: normal inspection, full ROM. Absent: tenderness, meningismus, lymphadenopathy Respiratory exam: Present: normal lung sounds bilaterally. Absent: respiratory distress, wheezes, rales, rhonchi, stridor Cardiovascular Exam: Present: regular rate, normal rhythm, normal heart sounds. Absent: systolic murmur, diastolic murmur, rubs, gallop, clicks Extremities exam: Present: normal inspection, full ROM, normal capillary refill. Absent: tenderness, pedal edema, joint swelling, calf tenderness Neurological exam: Present: alert, oriented X3 Psychiatric exam: Present: normal affect, normal mood Skin exam: Present: warm, dry, intact, normal color. Absent: rash Course Vital Signs 01/07/21 23:33 Temperature 97.8 F Pulse Rate 74 Respiratory 17 Rate Blood Pressure 135/83 O2 Sat by Pulse 98 Oximetry Medical Decision Making - Medical Decision Making 35-year-old male complaining of right-sided neck pain. 15 mg Toradol, soft tissue x-ray of the neck, strep test ordered. Labs ordered, labs unremarkable. Soft tissue x-ray of the neck no acute findings. Case discussed with Dr. Simon, patient can discharge home with follow-up to ENT. - Lab Data Result diagrams: 01/08/21 00:30 01/08/21 00:30 Lab Results 01/08/21 01/08/21 Range/Units 00:30 00:30 WBC 7.6 (3.8-10.6) k/uL RBC 4.76 (4.30-5.90) m/uL Hgb 14.4 (13.0-17.5) gm/dL Hct 41.8 (39.0-53.0) % MCV 87.7 (80.0-100.0) fL MCH 30.2 (25.0-35.0) pg MCHC 34.4 (31.0-37.0) g/dL RDW 13.6 (11.5-15.5) % Plt Count 274 (150-450) k/uL MPV 7.3 Neutrophils % 57 % Lymphocytes % 33 % Monocytes % 5 % Eosinophils % 2 % Basophils % 0 % Neutrophils # 4.4 (1.3-7.7) k/uL Lymphocytes # 2.5 (1.0-4.8) k/uL Monocytes # 0.4 (0-1.0) k/uL Eosinophils # 0.2 (0-0.7) k/uL Basophils # 0.0 (0-0.2) k/uL Sodium 140 (137-145) mmol/L Potassium 4.2 (3.5-5.1) mmol/L Chloride 103 (98-107) mmol/L Carbon Dioxide 27 (22-30) mmol/L Anion Gap 10 mmol/L BUN 19 (9-20) mg/dL Creatinine 0.82 (0.66-1.25) mg/dL Est GFR (CKD-EPI)AfAm >90 (>60 ml/min/1.73 sqM) Est GFR (CKD-EPI)NonAf >90 (>60 ml/min/1.73 sqM) Glucose 104 H (74-99) mg/dL Calcium 9.5 (8.4-10.2) mg/dL Total Bilirubin 0.4 (0.2-1.3) mg/dL AST 25 (17-59) U/L ALT 23 (4-49) U/L Alkaline Phosphatase 64 (38-126) U/L Total Protein 7.2 (6.3-8.2) g/dL Albumin 4.7 (3.5-5.0) g/dL Disposition Clinical Impression: Neck pain Disposition: HOME SELF-CARE Condition: Stable Instructions (If sedation given, give patient instructions): Neck Pain (ED) Additional Instructions: Please return to the Emergency Department if symptoms worsen or any other concerns. Follow-up with ENT in the next several days Take Tylenol 3 as prescribed. Eat foods as tolerated. Is patient prescribed a controlled substance at d/c from ED?: No Referrals: [facility],Clinic [Primary Care Provider] - 1-2 days Bradley Herzog MD [STAFF PHYSICIAN] - 1-2 days Time of Disposition: 02:07
[2021-01-08 02:20] VITALS: BP 138/82; PULSE 76; RESP 16
== END 2021-01-08 02:21 | disposition home or self-care (01) ==
LOC: EC 23:30
DX: M54.2 Cervicalgia (principal); K21.9 Gastro-esophageal reflux disease without esophagitis; Z88.5 Allergy status to narcotic agent; Z88.1 Allergy status to other antibiotic agents; Z79.899 Other long term (current) drug therapy
CPT/HCPCS: 36415; 80053; 85025; 87081; 87430; 70360; 99284; 96374; 96361; J1885

== ENCOUNTER 2021-06-06 10:21 | Emergency (ER) | payer OTHER ==
[2021-06-06 10:28] VITALS: BP 138/85; PULSE 83; RESP 18; TEMP 97.7
[2021-06-06] MEDS ORDERED: SULFAMETH-TMP DS STARTER PACK 2 TAB BTL PO STA (10:44)
--- NOTE | 2021-06-06 10:48 | ED ---
General Adult HPI - General Chief complaint: Skin/Abscess/Foreign Body Stated complaint: infection on face Time Seen by Provider: 06/06/21 10:33 Source: patient, RN notes reviewed Mode of arrival: ambulatory Limitations: no limitations - History of Present Illness Initial comments: Patient is a pleasant 35-year-old male presenting to the emergency department with concerns for infection of the lower lip. Patient did have a small pimple that he tried to pop last night. Patient had mild discomfort. This morning patient has had some swelling of the left lower lip with some increased discomfort. No dyspnea. Patient is tolerating oral intake. Patient does have history of somewhat similar episode occurring in his groin and was diagnosed with MRSA at that time. No fevers. - Related Data Home Medications Medication Instructions Recorded Confirmed HYDROcodone/APAP 10-325MG [[place] 1 tab PO QID PRN 04/01/19 11/11/20 10-325] Propranolol HCl [Inderal] 60 mg PO DAILY PRN 04/01/19 11/11/20 Omeprazole [PriLOSEC] 40 mg PO DAILY 11/11/20 11/11/20 Previous Rx's Medication Instructions Recorded HYDROcodone/APAP 10-325MG [[place] 1 each PO Q6H PRN #12 tab 11/14/20 10-325] Omeprazole [PriLOSEC] 40 mg PO DAILY #14 cap 11/14/20 Simethicone 40 mg/0.6 ml Drops 80 mg PO Q6HR PRN #30 ml 11/14/20 [Mylicon Drops] Sucralfate [Carafate] 1 gm PO BID #30 tablet 11/14/20 Ondansetron Odt [Zofran ODT] 4 mg PO Q8HR PRN #30 tab 12/15/20 Metoclopramide [Reglan] 10 mg PO TID PRN #15 tab 12/30/20 Pantoprazole [Protonix] 40 mg PO DAILY #30 tablet. 12/30/20 Sulfamethox-Tmp 800-160Mg [Bactrim 1 each PO Q12HR #18 tab 06/06/21 DS 800-160 mg] Allergies Allergy/AdvReac Type Severity Reaction Status Date / Time tramadol Allergy Unknown Verified 06/06/21 10:28 vancomycin Allergy Rash/Hives Verified 06/06/21 10:28 Review of Systems ROS Statement: Those systems with pertinent positive or pertinent negative responses have been documented in the HPI. ROS Other: All systems not noted in ROS Statement are negative. Constitutional: Denies: fever Eyes: Denies: eye pain ENT: Reports: as per HPI Respiratory: Denies: cough Cardiovascular: Denies: chest pain Endocrine: Denies: fatigue Gastrointestinal: Reports: abdominal pain (Patient has had some mild abdominal discomfort) Genitourinary: Denies: dysuria Musculoskeletal: Denies: back pain Skin: Reports: as per HPI Neurological: Denies: weakness Past Medical History Past Medical History: GERD/Reflux, Sleep Apnea/CPAP/BIPAP Additional Past Medical History / Comment(s): CHRONIC PAIN RIGHT & LEFT KNEE, LUMBAR AND CERIVAL PAIN (FROM SERVICE INJURY). MIGRAINES. DOES NOT USE CPAP. PLANTAR FASCIATIS IN BOTH FEET. History of Any Multi-Drug Resistant Organisms: MRSA Date of last positivie culture/infection: 08/24/2010; 02/24/2010; 07/27/2008 (ESTIMATED DATES FROM PATIENT). MDRO Source:: LEGS BUTTOCKS; LEG BUTTOCKS; GROIN Past Surgical History: Cholecystectomy, Orthopedic Surgery Additional Past Surgical History / Comment(s): RIGHT KNEE ARTHOSCOPY X 3, LEFT SHOULDER ARTHOSCOPY. Past Anesthesia/Blood Transfusion Reactions: No Reported Reaction Past Psychological History: No Psychological Hx Reported Smoking Status: Never smoker Past Alcohol Use History: None Reported Past Drug Use History: None Reported - Past Family History Mother Family Medical History: No Reported History General Exam Limitations: no limitations General appearance: alert, in no apparent distress Head exam: Present: normocephalic Eye exam: Present: normal appearance ENT exam: Present: normal oropharynx, other (Mild swelling with mild to moderate tenderness left lower lip.) Neck exam: Present: normal inspection Respiratory exam: Present: normal lung sounds bilaterally Cardiovascular Exam: Present: regular rate, normal rhythm GI/Abdominal exam: Present: soft, normal bowel sounds. Absent: distended, tenderness, guarding, rebound, rigid, pulsatile mass Extremities exam: Present: normal inspection Neurological exam: Present: alert Psychiatric exam: Present: normal affect, normal mood Skin exam: Present: other (Small pustule, approximately 2-3 mm below left lower lip. There is some swelling of left lower lip) Course Vital Signs 06/06/21 10:25 Temperature 97.7 F Pulse Rate 83 Respiratory 18 Rate Blood Pressure 138/85 O2 Sat by Pulse 100 Oximetry - Reevaluation(s) Reevaluation #1: 06/06/21 10:45 Abdominal exam unremarkable. Patient is offered further evaluation with blood work and imaging however refuses and states will reevaluate this if symptoms worsen. At this time patient just wants antibiotics and discharge. Disposition Clinical Impression: Infection of lip, Pustule Disposition: HOME SELF-CARE Condition: Stable Instructions (If sedation given, give patient instructions): Abscess (ED) Additional Instructions: Please follow-up to primary care physician within the next day or 2 for recheck. Return for fevers, increased pain, increased swelling, difficulty breathing or tolerating oral intake, worsening symptoms or other concerns. Also return for concerns for increasing abdominal discomfort. Prescription has been sent to pharmacy. Prescriptions: Sulfamethox-Tmp 800-160Mg [Bactrim DS 800-160 mg] 1 each PO Q12HR #18 tab Is patient prescribed a controlled substance at d/c from ED?: No Referrals: [facility],Clinic [Primary Care Provider] - 1-2 days Time of Disposition: 10:48
== END 2021-06-06 10:59 | disposition home or self-care (01) ==
LOC: EC 10:21
DX: K13.0 Diseases of lips (principal); L08.9 Local infection of the skin and subcutaneous tissue, unspecified; I25.2 Old myocardial infarction; Z88.1 Allergy status to other antibiotic agents; Z88.8 Allergy status to other drugs, medicaments and biological substances; K21.9 Gastro-esophageal reflux disease without esophagitis; Z79.899 Other long term (current) drug therapy
CPT/HCPCS: 99282

== ENCOUNTER 2021-06-08 01:14 | Emergency (ER) | payer OTHER ==
[2021-06-08 01:17] VITALS: TEMP 97.8
[2021-06-08] MEDS ORDERED: ONDANSETRON 4 MG/2 ML VIAL IVP STA ×2 (01:37→03:07)
[2021-06-08] MEDS ORDERED: KETOROLAC 15 MG/ML 1 ML VIAL IVP STA (01:37)
[2021-06-08] MEDS ORDERED: SODIUM CHLORIDE 0.9% 1,000 ML IV STA (01:37)
--- NOTE | 2021-06-08 02:21 | CT ---
EXAMINATION TYPE: CT abdomen pelvis wo con DATE OF EXAM: 06/08/2021 COMPARISON: 12/30/2020 HISTORY: pain CT DLP: 931.2 mGycm Automated exposure control for dose reduction was used. Images obtained from the diaphragm to the floor the pelvis with no contrast. Lung bases are clear. There is no pleural effusion. Heart size is normal. There is no pericardial eff usion. Liver spleen stomach pancreas appear intact. Bile ducts are not dilated. Gallbladder appears absent. There is no adrenal mass. Kidneys have normal size. There is no hydronephrosis. There is no retroperi toneal adenopathy. Appendix is posterior and appears normal. Ureters are not dilated. Bladder distend s smoothly. There is no inguinal hernia. There is no free fluid in the pelvis. There is no sign of a pelvic mass. There is no mesenteric edema. There is no ascites or free air. There is no bowel obstruction. Lumbar vertebra have normal alignment. Posterior elements are intact. There is no compression fractur e. There is intact bony pelvis. Hip joints appear normal. IMPRESSION: No evidence of renal stone or obstruction. Normal appendix. Negative CT scan abdomen and pelvis. No a dverse change compared to old exam.
[2021-06-08 02:22] LABS: Appearance,Urine Clear (Clear); Bilirubin,Urine Negative (Negative); Blood,Urine Negative (Negative); Color,Urine Yellow; Glucose,Urine (UA) Negative (Negative); Ketones,Urine Negative (Negative); Leukocyte Esterase,Urine Negative (Negative); Nitrite,Urine Negative (Negative); PH, Urine 6.5 (5.0-8.0); Protein,Urine Negative (Negative); Specific Gravity,Urine 1.015 (1.001-1.035); Urobilinogen,Urine <2.0 mg/dL (<2.0)
[2021-06-08 02:24] LABS: ALT 19 U/L (4-49); AST 30 U/L (17-59); African American GFR (CKD) >90 (>60 ml/min/1.73 sqM); Albumin 4.4 g/dL (3.5-5.0); Alkaline Phosphatase 54 U/L (38-126); Anion Gap 8 mmol/L; Blood Urea Nitrogen 15 mg/dL (9-20); Calcium 9.3 mg/dL (8.4-10.2); Carbon Dioxide 25 mmol/L (22-30); Chloride 104 mmol/L (98-107); Glucose 99 mg/dL (74-99); Lipase 70 U/L (23-300); Non-African American GFR(CKD) >90 (>60 ml/min/1.73 sqM); Potassium 4.3 mmol/L (3.5-5.1); Sodium 137 mmol/L (137-145); Total Bilirubin 0.4 mg/dL (0.2-1.3); Total Protein 7.3 g/dL (6.3-8.2)
[2021-06-08 02:27] LABS: Basophils # (A) 0.1 k/uL (0-0.2); Basophils % (A) 1 %; Eosinophils # (A) 0.4 k/uL (0-0.7); Eosinophils % (A) 5 %; HCT 43.7 % (39.0-53.0); HGB 15.3 gm/dL (13.0-17.5); Lymphocytes % (A) 39 %; MCH 31.3 pg (25.0-35.0); MCHC 35.1 g/dL (31.0-37.0); MCV 89.3 fL (80.0-100.0); Mean Platelet Volume 7.3; Monocytes # (A) 0.5 k/uL (0-1.0); Monocytes % (A) 7 %; Neutrophils # (A) 3.4 k/uL (1.3-7.7); Neutrophils % (A) 46 %; Platelet Count 276 k/uL (150-450); RDW 12.4 % (11.5-15.5); WBC 7.5 k/uL (3.8-10.6)
[2021-06-08] MEDS ORDERED: IBUPROFEN 600 MG STARTER PACK 4 TAB BTL PO STA (03:07)
[2021-06-08] MEDS ORDERED: ONDANSETRON 4 MG ODT STARTER PACK 2 TAB BTL PO STA (03:07)
--- NOTE | 2021-06-08 03:10 | ED ---
Abdominal Pain HPI - General Chief Complaint: Abdominal Pain Stated Complaint: RT flank pain Time Seen by Provider: 06/08/21 01:21 Source: patient Mode of arrival: ambulatory Limitations: no limitations - History of Present Illness Initial Comments: 35-year-old male patient presents to the emergency department today for evaluation of right flank pain she states his been having the pain for the last couple of days but woke him from sleep tonight. Patient states he was sweating with the pain. States he has been urinating more frequently. Denies any hematuria. Denies any constipation or diarrhea. States he has been nauseated. Denies vomiting. Denies any fever or chills. Denies history of similar symptoms. - Related Data Home Medications Medication Instructions Recorded Confirmed HYDROcodone/APAP 10-325MG [[place] 1 tab PO QID PRN 04/01/19 11/11/20 10-325] Propranolol HCl [Inderal] 60 mg PO DAILY PRN 04/01/19 11/11/20 Omeprazole [PriLOSEC] 40 mg PO DAILY 11/11/20 11/11/20 Previous Rx's Medication Instructions Recorded HYDROcodone/APAP 10-325MG [[place] 1 each PO Q6H PRN #12 tab 11/14/20 10-325] Omeprazole [PriLOSEC] 40 mg PO DAILY #14 cap 11/14/20 Simethicone 40 mg/0.6 ml Drops 80 mg PO Q6HR PRN #30 ml 11/14/20 [Mylicon Drops] Sucralfate [Carafate] 1 gm PO BID #30 tablet 11/14/20 Ondansetron Odt [Zofran ODT] 4 mg PO Q8HR PRN #30 tab 12/15/20 Metoclopramide [Reglan] 10 mg PO TID PRN #15 tab 12/30/20 Pantoprazole [Protonix] 40 mg PO DAILY #30 tablet. 12/30/20 Sulfamethox-Tmp 800-160Mg [Bactrim 1 each PO Q12HR #18 tab 06/06/21 DS 800-160 mg] Ibuprofen [Motrin] 600 mg PO Q8HR PRN #30 tab 06/08/21 Ondansetron [Zofran ODT] 4 mg PO Q8HR PRN #10 tab 06/08/21 Allergies Allergy/AdvReac Type Severity Reaction Status Date / Time tramadol Allergy Unknown Verified 06/08/21 01:17 vancomycin Allergy Rash/Hives Verified 06/08/21 01:17 Review of Systems ROS Statement: Those systems with pertinent positive or pertinent negative responses have been documented in the HPI. ROS Other: All systems not noted in ROS Statement are negative. Past Medical History Past Medical History: GERD/Reflux, Sleep Apnea/CPAP/BIPAP Additional Past Medical History / Comment(s): CHRONIC PAIN RIGHT & LEFT KNEE, LUMBAR AND CERIVAL PAIN (FROM SERVICE INJURY). MIGRAINES. DOES NOT USE CPAP. PLANTAR FASCIATIS IN BOTH FEET. History of Any Multi-Drug Resistant Organisms: MRSA Date of last positivie culture/infection: 08/24/2010; 02/24/2010; 07/27/2008 (ESTIMATED DATES FROM PATIENT). MDRO Source:: LEGS BUTTOCKS; LEG BUTTOCKS; GROIN Past Surgical History: Cholecystectomy, Orthopedic Surgery Additional Past Surgical History / Comment(s): RIGHT KNEE ARTHOSCOPY X 3, LEFT SHOULDER ARTHOSCOPY. Past Anesthesia/Blood Transfusion Reactions: No Reported Reaction Past Psychological History: No Psychological Hx Reported Smoking Status: Never smoker Past Alcohol Use History: None Reported Past Drug Use History: None Reported - Past Family History Mother Family Medical History: No Reported History General Exam Limitations: no limitations General appearance: alert, in no apparent distress, other (This is a well- developed, well-nourished adult male in no acute distress.) ENT exam: Present: normal exam, normal oropharynx, mucous membranes moist Respiratory exam: Present: normal lung sounds bilaterally. Absent: respiratory distress, wheezes, rales, rhonchi, stridor Cardiovascular Exam: Present: regular rate, normal rhythm, normal heart sounds. Absent: systolic murmur, diastolic murmur, rubs, gallop, clicks GI/Abdominal exam: Present: soft, tenderness (Epigastric), normal bowel sounds. Absent: distended, guarding, rebound, rigid Neurological exam: Present: alert, oriented X3, CN II-XII intact Psychiatric exam: Present: normal affect, normal mood Skin exam: Present: warm, dry, intact, normal color. Absent: rash Course Vital Signs 06/08/21 06/08/21 01:16 03:28 Temperature 97.8 F Pulse Rate 69 74 Respiratory 18 15 Rate Blood Pressure 138/89 136/77 O2 Sat by Pulse 99 96 Oximetry Medical Decision Making - Medical Decision Making 35-year-old male patient presents for evaluation of right flank pain started couple of days ago worsened tonight. Physical examination did reveal midepigastric abdominal tenderness. Labs reviewed and were unremarkable. Urinalysis negative. CT abdomen and pelvis negative. I did discuss findings and results with him. He'll be discharged follow-up with his primary care physician for recheck in 1-2 days. Return parameters were discussed in detail. He verbalizes understanding and agrees with this plan. My attending is Dr. Simon. - Lab Data Result diagrams: 06/08/21 01:48 06/08/21 01:48 Lab Results 06/08/21 06/08/21 06/08/21 Range/Units 01:48 01:48 01:48 WBC 7.5 (3.8-10.6) k/uL RBC 4.90 (4.30-5.90) m/uL Hgb 15.3 (13.0-17.5) gm/dL Hct 43.7 (39.0-53.0) % MCV 89.3 (80.0-100.0) fL MCH 31.3 (25.0-35.0) pg MCHC 35.1 (31.0-37.0) g/dL RDW 12.4 (11.5-15.5) % Plt Count 276 (150-450) k/uL MPV 7.3 Neutrophils % 46 % Lymphocytes % 39 % Monocytes % 7 % Eosinophils % 5 % Basophils % 1 % Neutrophils # 3.4 (1.3-7.7) k/uL Lymphocytes # 3.0 (1.0-4.8) k/uL Monocytes # 0.5 (0-1.0) k/uL Eosinophils # 0.4 (0-0.7) k/uL Basophils # 0.1 (0-0.2) k/uL Sodium 137 (137-145) mmol/L Potassium 4.3 (3.5-5.1) mmol/L Chloride 104 (98-107) mmol/L Carbon Dioxide 25 (22-30) mmol/L Anion Gap 8 mmol/L BUN 15 (9-20) mg/dL Creatinine 1.02 (0.66-1.25) mg/dL Est GFR (CKD-EPI)AfAm >90 (>60 ml/min/1.73 sqM) Est GFR (CKD-EPI)NonAf >90 (>60 ml/min/1.73 sqM) Glucose 99 (74-99) mg/dL Plasma Lactic Acid [place] (0.7-2.0) mmol/L Calcium 9.3 (8.4-10.2) mg/dL Total Bilirubin 0.4 (0.2-1.3) mg/dL AST 30 (17-59) U/L ALT 19 (4-49) U/L Alkaline Phosphatase 54 (38-126) U/L Total Protein 7.3 (6.3-8.2) g/dL Albumin 4.4 (3.5-5.0) g/dL Lipase 70 (23-300) U/L Urine Color Yellow Urine Appearance Clear (Clear) Urine pH 6.5 (5.0-8.0) Ur Specific [place] 1.015 (1.001-1.035) Urine Protein Negative (Negative) Urine Glucose (UA) Negative (Negative) Urine Ketones Negative (Negative) Urine Blood Negative (Negative) Urine Nitrite Negative (Negative) Urine Bilirubin Negative (Negative) Urine Urobilinogen <2.0 (<2.0) mg/dL Ur Leukocyte Esterase Negative (Negative) 06/08/21 Range/Units 01:48 WBC (3.8-10.6) k/uL RBC (4.30-5.90) m/uL Hgb (13.0-17.5) gm/dL Hct (39.0-53.0) % MCV (80.0-100.0) fL MCH (25.0-35.0) pg MCHC (31.0-37.0) g/dL RDW (11.5-15.5) % Plt Count (150-450) k/uL MPV Neutrophils % % Lymphocytes % % Monocytes % % Eosinophils % % Basophils % % Neutrophils # (1.3-7.7) k/uL Lymphocytes # (1.0-4.8) k/uL Monocytes # (0-1.0) k/uL Eosinophils # (0-0.7) k/uL Basophils # (0-0.2) k/uL Sodium (137-145) mmol/L Potassium (3.5-5.1) mmol/L Chloride (98-107) mmol/L Carbon Dioxide (22-30) mmol/L Anion Gap mmol/L BUN (9-20) mg/dL Creatinine (0.66-1.25) mg/dL Est GFR (CKD-EPI)AfAm (>60 ml/min/1.73 sqM) Est GFR (CKD-EPI)NonAf (>60 ml/min/1.73 sqM) Glucose (74-99) mg/dL Plasma Lactic Acid Kav[place] 0.5 L (0.7-2.0) mmol/L Calcium (8.4-10.2) mg/dL Total Bilirubin (0.2-1.3) mg/dL AST (17-59) U/L ALT (4-49) U/L Alkaline Phosphatase (38-126) U/L Total Protein (6.3-8.2) g/dL Albumin (3.5-5.0) g/dL Lipase (23-300) U/L Urine Color Urine Appearance (Clear) Urine pH (5.0-8.0) Ur Specific [place] (1.001-1.035) Urine Protein (Negative) Urine Glucose (UA) (Negative) Urine Ketones (Negative) Urine Blood (Negative) Urine Nitrite (Negative) Urine Bilirubin (Negative) Urine Urobilinogen (<2.0) mg/dL Ur Leukocyte Esterase (Negative) - Radiology Data Radiology results: report reviewed, image reviewed CT abdomen and pelvis without contrast was obtained. Report is reviewed in its entirety. Impression by Dr. Reagan shows no evidence of renal stone or obstruction. Normal appendix. Negative computed tomography scan abdomen and pelvis. No adverse change compared to old exam. Disposition Clinical Impression: Right flank pain Disposition: HOME SELF-CARE Condition: Good Instructions (If sedation given, give patient instructions): Flank Pain (ED) Additional Instructions: Increase fluids. Rest. Follow-up with a primary care physician for recheck in 1-2 days. Return for any new, worsening, or concerning symptoms. Prescriptions: Ibuprofen [Motrin] 600 mg PO Q8HR PRN #30 tab PRN Reason: Pain Ondansetron [Zofran ODT] 4 mg PO Q8HR PRN #10 tab PRN Reason: Nausea Is patient prescribed a controlled substance at d/c from ED?: No Referrals: [facility],Clinic [Primary Care Provider] - 1-2 days Time of Disposition: 03:09
[2021-06-08] MEDS ORDERED: ACET/COD 300 MG/30 MG STARTER PACK 6 TAB BTL PO STA (03:21)
[2021-06-08 03:29] VITALS: BP 136/77; PULSE 74; RESP 15
== END 2021-06-08 03:28 | disposition home or self-care (01) ==
LOC: EC 01:14
DX: R10.9 Unspecified abdominal pain (principal); K21.9 Gastro-esophageal reflux disease without esophagitis; Z90.49 Acquired absence of other specified parts of digestive tract; Z88.1 Allergy status to other antibiotic agents; Z88.5 Allergy status to narcotic agent; Z79.899 Other long term (current) drug therapy
CPT/HCPCS: 36415; 80053; 83605; 83690; 85025; 81003; 74176; 99284; 96374; 96376; 96375; 96361; J2405; J1885; S0119